=== PATIENT | female | born 1935 | race Caucasian/White ===

== ENCOUNTER 2019-05-07 12:35 | Inpatient (IN) | payer MEDICARE, BC, MEDICAID ==
--- NOTE | 2019-05-07 12:47 | EDM.PDOC ---
ED HPI GENERAL MEDICAL PROBLEM - General Chief Complaint: Head Injury Stated Complaint: Fall, Laceration, on Coumadin Time Seen by Provider: 05/07/19 12:35 Source of Information: Reports: Patient, Usp Records History Limitations: Reports: No Limitations - History of Present Illness INITIAL COMMENTS - FREE TEXT/NARRATIVE: Patient to the emergency department from the [place] [facility] where she fell. The patient has a laceration to the left parietal head area. The patient also complains of left ankle pain. The patient is unsure exactly what happened. The [facility] staff advised that they found her on the floor. The patient is on Coumadin for her atrial fibrillation and blood clots. The patient is awake alert she is oriented to person, not place/time. The patient denies any chest pain denies any abdominal pain the patient denies any upper extremity pain she denies any hip or pelvis pain and she denies any right lower extremity pain. The patient's GCS is 4-4-6 a trauma code was activated secondary to the mechanism of fall and bleeding on blood thinners Onset: Today, Sudden Duration: Hour(s): Location: Reports: Head, Lower Extremity, Left Quality: Reports: Ache Severity: Moderate Improves with: Reports: None Worsens with: Reports: Movement (Of the left ankle) Context: Reports: Trauma Associated Symptoms: Reports: Confusion (Chronic), Headaches. Denies: Nausea/ Vomiting Treatments FORMULATION TECHNICIAN: Reports: Other (see below) (none) - Related Data Allergies Allergy/AdvReac Type Severity Reaction Status Date / Time carisoprodol [From Soma] Allergy Cannot Verified 05/07/19 13:38 Remember cefaclor [From Ceclor] Allergy Cannot Verified 05/07/19 13:38 Remember cefuroxime [From Ceftin] Allergy Cannot Verified 05/07/19 13:38 Remember clarithromycin [From Biaxin] Allergy Cannot Verified 05/07/19 13:38 Remember naproxen [From Naprosyn] Allergy Cannot Verified 05/07/19 13:37 Remember Penicillins Allergy Cannot Verified 05/07/19 13:37 Remember quinidine Allergy Cannot Verified 05/07/19 13:38 [From Quinidex Extentabs] Remember Home Meds: Home Meds Albuterol/Ipratropium [DuoNeb 3.0-0.5 MG/3 ML] 1 ampule INH QID 05/07/19 [ History] Budesonide/Formoterol [Symbicort 160-4.5 MCG] 2 puff INH BID 05/07/19 [History] Diltiazem HCl [Cardizem] 30 mg PO BID 05/07/19 [History] Furosemide 80 mg PO BID 05/07/19 [History] Insulin Detemir [Levemir Flextouch] 28 unit SQ BID 05/07/19 [History] Spironolactone [Aldactone] 12.5 mg PO DAILY 05/07/19 [History] Warfarin [Coumadin] 2.5 mg PO DAILY 05/07/19 [History] ED ROS GENERAL - Review of Systems Review Of Systems: See Below Constitutional: Reports: No Symptoms HEENT: Reports: No Symptoms Respiratory: Reports: No Symptoms Cardiovascular: Reports: No Symptoms Endocrine: Reports: No Symptoms GI/Abdominal: Reports: No Symptoms. Denies: Abdominal Pain, Nausea, Vomiting : Reports: No Symptoms Musculoskeletal: Reports: Joint Pain (Left ankle) Skin: Reports: Wound (Left parietal head) Neurological: Reports: No Symptoms (No new symptoms) Psychiatric: Reports: No Symptoms ED EXAM, HEAD INJURY - Physical Exam Exam: See Below Exam Limited By: No Limitations General Appearance: Alert, WD/WN, No Apparent Distress Head: Normocephalic Nexus Criteria: Posterior, Midline Cervical Tenderness ED LACERATION/WOUND & RALF PROC - Laceration/Wound Repair Left Lateral Head Lac/wound length in cm: 2 Appearance: Linear Distal NVT: Neuro & Vascular Intact Skin Prep: Other (wound ceiling cleaner) Exploration/Debridement/Repair: Wound Explored, In a Bloodless Field Closed with: [place] # of Sutures: 5 - Splinting Left Lower Extremity Splint Site: left ankle Pre-procedure NV status: Normal Post-procedure NV status: Normal Splint Material: Other (ortho glass) Splint Design: Volar Applied & Form Fitted By: Provider Provider Post-Splint Application NV Check: NV Status Normal, Good Position Complications: No Progress/Comments: Postreduction film shows good alignment, distal pulse motor sensory is intact capillary refills less than 2 seconds to the extremity Course - Vital Signs Text/Narrative:: 1330 The patient has been evaluated in the emergency department CT of the head and neck is been obtained and is pending radiology reading. X-ray of the lumbar and thoracic spine show some degenerative changes no obvious acute fracture noted at this point. The patient does have a left ankle fracture. The patient's INR is greater than 6. The patient's left ankle was placed in a posterior splint, a soft sock padding was placed followed by cotton padding followed by the Ortho-Glass posterior splint secured with Joaquin wrap. Postreduction film shows good alignment of the fracture. This is a very complicated patient as she does have a head injury with an elevated INR and a distal tib-fib fracture of the left ankle. The patient has a 2 cm linear laceration to the left parietal area, bleeding is controlled. Wound was cleaned and then 5 alexa were placed. In normal circumstances this patient will be transferred to a tertiary care center for further evaluation and treatment. However this patient is a DNR and will be a poor candidate for any type of surgery. Currently I am trying to get a hold of the family (Evan Zambrano who I spoke with and will be calling me back) to help determine a disposition for this patient. The patient has been given vitamin K 10 mg subcutaneously. 1419 the radiologist was called back and advised that the CT of the brain does not show any acute intracranial pathology. CT of the cervical spine as well as x-rays of the lumbar and dorsal spine show some degenerative changes however it does not show any acute obvious fractures. She does advise that at L2 and L3 there does appear to be some endplate irregularities. Currently, I am still waiting on the patient's nephew the patient's uncle power of assistant professor of philosophy to call me back to determine a disposition for this patient 1447 I spoke back to the patient's nephew and medical power of assistant professor of philosophy and he advised that at this point they do not want to transfer the patient as they do not feel her being a DO NOT RESUSCITATE and her chronic medical conditions that they would want to have any surgeries at this point. I did advise him of the CT and the lab work. I have further advised him that we would probably monitor her here overnight and make a disposition with possible discharge tomorrow and he agrees to that. The patient's urine does show urinary tract infection she is allergic to multiple antibiotics, the patient will be given nitrofurantoin 100 mg p.o. twice daily. The patient will be admitted to the hospital, repeat labs will be obtained in the morning and a disposition and changes to her treatment plan will will be made at that point. - Orders/Labs/Meds Orders: Active Orders 24 hr Category Date Time Status Insert Urinary Catheter [OM.PC] Q24H Care 05/07/19 13:00 Ordered Urinary Catheter Assessment [RC] ASDIRECTED Care 05/07/19 12:58 Active Ankle Min 3V Lt [CR] Stat Exams 05/07/19 12:42 Taken Cervical Spine wo Cont [CT] Stat Exams 05/07/19 12:39 Taken Head wo Cont [CT] Routine Exams 05/07/19 Ordered Lumbar Spine 2 or 3V [CR] Stat Exams 05/07/19 12:55 Taken Thoracic Spine 2V [CR] Stat Exams 05/07/19 12:55 Taken CULTURE URINE [RM] Stat Lab 05/07/19 14:00 Received Labs: Laboratory Tests 05/07/19 05/07/19 05/07/19 Range/Units 12:55 12:55 12:55 WBC 12.4 H (5.0-10.0) 10^3/uL RBC 4.43 (4.00-5.50) 10^6/uL Hgb 12.7 (12.0-16.0) g/dL Hct 42.7 (37.0-47.0) % MCV 96.4 H (82.0-94.0) fL MCH 28.7 (27.0-32.0) pg MCHC 29.7 L (33.0-38.0) g/dL RDW Coeff of Fady 14.2 (11.0-15.0) % Plt Count 368 (150-400) 10^3/uL Neut % (Auto) 79.9 (35-85) % Lymph % (Auto) 6.0 L (10-55) % [place] % (Auto) 12.8 (0-16) % Eos % (Auto) 1.0 (0-5) % Baso % (Auto) 0.3 (0-3) % Neut # (Auto) 9.91 H (1.80-7.00) 10^3/uL Lymph # (Auto) 0.74 L (1.00-4.80) 10^3/uL [place] # (Auto) 1.59 H (0.00-0.80) 10^3/uL Eos # (Auto) 0.12 (0.00-0.45) 10^3/uL Baso # (Auto) 0.04 10^3/uL PT 61.5 H (9.7-12.3) SEC INR 6.65 H* (0.92-1.18) Sodium 137 (136-145) mEq/L Potassium 5.3 H D (3.5-5.0) mEq/L Chloride 100 (98-106) mEq/L Carbon Dioxide 35 H (21-32) mmol/L BUN 42 H (7-18) mg/dL Creatinine 1.9 H (0.6-1.0) mg/dL Est Cr Clr Drug Dosing TNP Estimated GFR (MDRD) 25 L (>=60) mL/min Glucose 324 H* D (75-99) mg/dL Calcium 9.0 (8.4-10.1) mg/dL Urine Color (YELLOW) Urine Appearance (CLEAR) Urine pH (4.5-8.0) Ur Specific [place] (1.003-1.020) Urine Protein (NEGATIVE) mg/dL Urine Glucose (UA) (NEGATIVE) mg/dL Urine Ketones (NEGATIVE) mg/dL Urine Occult Blood (NEGATIVE) Urine Nitrite (NEGATIVE) Urine Bilirubin (NEGATIVE) Urine Urobilinogen (0.2-1.0) EU/dL Ur Leukocyte Esterase (NEGATIVE) Urine RBC (0-5) /HPF Urine WBC (0-5) /HPF Urine WBC Clumps (NOT SEEN) /HPF Ur Epithelial Cells (NOT SEEN) /HPF Urine Bacteria (NOT SEEN) /HPF 05/07/19 Range/Units 14:00 WBC (5.0-10.0) 10^3/uL RBC (4.00-5.50) 10^6/uL Hgb (12.0-16.0) g/dL Hct (37.0-47.0) % MCV (82.0-94.0) fL MCH (27.0-32.0) pg MCHC (33.0-38.0) g/dL RDW Coeff of Fady (11.0-15.0) % Plt Count (150-400) 10^3/uL Neut % (Auto) (35-85) % Lymph % (Auto) (10-55) % [place] % (Auto) (0-16) % Eos % (Auto) (0-5) % Baso % (Auto) (0-3) % Neut # (Auto) (1.80-7.00) 10^3/uL Lymph # (Auto) (1.00-4.80) 10^3/uL [place] # (Auto) (0.00-0.80) 10^3/uL Eos # (Auto) (0.00-0.45) 10^3/uL Baso # (Auto) 10^3/uL PT (9.7-12.3) SEC INR (0.92-1.18) Sodium (136-145) mEq/L Potassium (3.5-5.0) mEq/L Chloride (98-106) mEq/L Carbon Dioxide (21-32) mmol/L BUN (7-18) mg/dL Creatinine (0.6-1.0) mg/dL Est Cr Clr Drug Dosing Estimated GFR (MDRD) (>=60) mL/min Glucose (75-99) mg/dL Calcium (8.4-10.1) mg/dL Urine Color Yellow (YELLOW) Urine Appearance Slightly cloudy (CLEAR) Urine pH 7.0 (4.5-8.0) Ur Specific [place] 1.020 (1.003-1.020) Urine Protein 100 H (NEGATIVE) mg/dL Urine Glucose (UA) Negative (NEGATIVE) mg/dL Urine Ketones Negative (NEGATIVE) mg/dL Urine Occult Blood Large H (NEGATIVE) Urine Nitrite Positive H (NEGATIVE) Urine Bilirubin Negative (NEGATIVE) Urine Urobilinogen 0.2 (0.2-1.0) EU/dL Ur Leukocyte Esterase Moderate H (NEGATIVE) Urine RBC 20-30 H (0-5) /HPF Urine WBC 30-40 H (0-5) /HPF Urine WBC Clumps Few H (NOT SEEN) /HPF Ur Epithelial Cells Few H (NOT SEEN) /HPF Urine Bacteria Many H (NOT SEEN) /HPF Meds: Medications Discontinued Medications Generic Name Dose Route Start Last Admin Trade Name Freq PRN Reason Stop Dose Admin Nitrofurantoin Macrocrystals 100 mg 05/07/19 14:20 Macrobid PO 05/07/19 14:21 ONETIME ONE Phytonadione 10 mg 05/07/19 13:29 05/07/19 13:38 Aquamephyton SUBCUT 05/07/19 13:30 10 mg ONETIME ONE Administration Departure - Departure Time of Disposition: 14:49 Disposition: Admitted As Inpatient 64 Condition: Good Clinical Impression: Fall, Closed left ankle fracture, Over-anticoagulated, Closed head injury, Laceration of skin of scalp, Chronic renal insufficiency, Urinary tract infection - Discharge Information *PRESCRIPTION DRUG MONITORING PROGRAM REVIEWED*: Not Applicable *COPY OF PRESCRIPTION DRUG MONITORING REPORT IN PATIENT MADINA: Not Applicable Forms: ED Department Discharge Sepsis Event Note - Focused Exam Date Exam was Performed: 05/07/19 Time Exam was Performed: 14:47 - Problem List & Annotations (1) Chronic renal insufficiency SNOMED Code(s): 750582694 Code(s): N18.9 - CHRONIC KIDNEY DISEASE, UNSPECIFIED Status: Acute Priority: Medium Qualifiers: Chronic kidney disease stage: unspecified stage Qualified Code(s): N18.9 - Chronic kidney disease, unspecified (2) Closed head injury SNOMED Code(s): 429956501856 Code(s): S09.90XA - UNSPECIFIED INJURY OF HEAD, INITIAL ENCOUNTER Status: Acute Priority: High Qualifiers: Encounter type: initial encounter Qualified Code(s): S09.90XA - Unspecified injury of head, initial encounter (3) Closed left ankle fracture SNOMED Code(s): 58488450 Code(s): S82.892A - OTH FRACTURE OF LEFT LOWER LEG, INIT FOR CLOS FX Status : Acute Priority: High Qualifiers: Encounter type: initial encounter Qualified Code(s): S82.892A - Other fracture of left lower leg, initial encounter for closed fracture (4) Fall SNOMED Code(s): 7058288, 573383633 Code(s): W19.XXXA - UNSPECIFIED FALL, INITIAL ENCOUNTER Status: Acute Priority: Medium Qualifiers: Encounter type: initial encounter Qualified Code(s): W19.XXXA - Unspecified fall, initial encounter (5) Laceration of skin of scalp SNOMED Code(s): 202524753 Code(s): S01.01XA - LACERATION WITHOUT FOREIGN BODY OF SCALP, INITIAL ENCOUNTER Status: Acute Priority: Medium Qualifiers: Encounter type: initial encounter Qualified Code(s): S01.01XA - Laceration without foreign body of scalp, initial encounter (6) Over-anticoagulated SNOMED Code(s): 25261866, 552805268 Code(s): XSD4225 - Status: Acute Priority: Medium (7) Urinary tract infection SNOMED Code(s): 80631671 Code(s): N39.0 - URINARY TRACT INFECTION, SITE NOT SPECIFIED Status: Acute Priority: Medium Qualifiers: Indwelling urinary catheter type: unspecified - Problem List Review Problem List Initiated/Reviewed/Updated: Yes - My Orders Last 24 Hours: My Active Orders 05/07/19 Head wo Cont [CT] Routine 05/07/19 12:39 Cervical Spine wo Cont [CT] Stat 05/07/19 12:42 Ankle Min 3V Lt [CR] Stat 05/07/19 12:55 Lumbar Spine 2 or 3V [CR] Stat Thoracic Spine 2V [CR] Stat 05/07/19 12:58 Urinary Catheter Assessment [RC] ASDIRECTED 05/07/19 13:00 Insert Urinary Catheter [OM.PC] Q24H 05/07/19 14:00 CULTURE URINE [RM] Stat - Assessment/Plan Admission H&P: Please use this note as an admission H&P Last 24 Hours: My Active Orders 05/07/19 Head wo Cont [CT] Routine 05/07/19 12:39 Cervical Spine wo Cont [CT] Stat 05/07/19 12:42 Ankle Min 3V Lt [CR] Stat 05/07/19 12:55 Lumbar Spine 2 or 3V [CR] Stat Thoracic Spine 2V [CR] Stat 05/07/19 12:58 Urinary Catheter Assessment [RC] ASDIRECTED 05/07/19 13:00 Insert Urinary Catheter [OM.PC] Q24H 05/07/19 14:00 CULTURE URINE [RM] Stat Plan: As above
[2019-05-07 13:12] LABS: CHLORIDE,CL 100 mEq/L (98-106); SODIUM,NA 137 mEq/L (136-145)
[2019-05-07] MEDS ORDERED: Nitrofurantoin Monohydrate/Macrocrystalline 100 MG Cap PO ONE (14:20)
[2019-05-07] MEDS ORDERED: Sodium Chloride 0.9% 10 ML Syringe FLUSH PRN (16:24)
[2019-05-07] MEDS ORDERED: Ondansetron 4 MG Tab.DIS PO PRN (16:24)
[2019-05-07] MEDS: Nitrofurantoin Monohydrate/Macrocrystalline 100 MG Cap PO SCH (18:07)
[2019-05-07] MEDS: Albuterol/Ipratropium 3.0-0.5 MG/3 ML Neb Soln INH SCH ×2 (18:07→20:26)
[2019-05-07] MEDS: Diltiazem IR 30 MG Tab PO SCH (20:26)
[2019-05-07] MEDS: Furosemide 80 MG Tab PO SCH (20:26)
[2019-05-07] MEDS: Acetaminophen/HYDROcodone 325-5 MG Tab PO PRN (20:27)
[2019-05-07] MEDS: Formoterol/Mometasone 200-5 MCG 8.8 GM Inhaler IH SCH (20:32)
[2019-05-07] MEDS: Insulin Glargine,Human Rec. Analog 100 Units/ML 3 ML Pen SUBCUT SCH (20:54)
[2019-05-08] MEDS: Acetaminophen/HYDROcodone 325-5 MG Tab PO PRN ×3 (02:19→19:53)
[2019-05-08] MEDS: Spironolactone 25 MG Tab PO SCH (08:00)
[2019-05-08] MEDS: Furosemide 80 MG Tab PO SCH ×2 (08:00→19:52)
[2019-05-08] MEDS: Nitrofurantoin Monohydrate/Macrocrystalline 100 MG Cap PO SCH ×2 (08:01→17:22)
[2019-05-08] MEDS: Diltiazem IR 30 MG Tab PO SCH ×2 (08:01→19:54)
[2019-05-08] MEDS: Albuterol/Ipratropium 3.0-0.5 MG/3 ML Neb Soln INH SCH ×4 (08:01→19:54)
[2019-05-08] MEDS: Formoterol/Mometasone 200-5 MCG 8.8 GM Inhaler IH SCH ×2 (08:04→19:51)
[2019-05-08] MEDS: Insulin Glargine,Human Rec. Analog 100 Units/ML 3 ML Pen SUBCUT SCH ×2 (08:07→20:22)
[2019-05-08] MEDS ORDERED: Albuterol/Ipratropium 3.0-0.5 MG/3 ML Neb Soln ONE (08:44)
--- NOTE | 2019-05-08 11:24 | PCM.DCSUM1 ---
Discharge Summary - Hospital Course Free Text/Narrative:: The patient's chart from yesterday for details visit, the patient presented from the retirement with a fall/closed head injury and a fracture of the left ankle. Patient also had a urinary tract infection and found to be hyper anticoagulated. Diagnosis: Stroke: No Modified Jacqueline Scale: No Symptoms at All Modified Jacqueline Scale Score: 0 - Discharge Data Discharge Date: 05/08/19 Discharge Disposition: Home, Self-Care 01 Condition: Good - Referral to Home Health Primary Care Physician: Ted Tsai MD - Discharge Diagnosis/Problem(s) (1) Chronic renal insufficiency SNOMED Code(s): 144957476 ICD Code: N18.9 - CHRONIC KIDNEY DISEASE, UNSPECIFIED Status: Acute Priority: Medium Current Visit: No Qualifiers: Chronic kidney disease stage: unspecified stage Qualified Code(s): N18.9 - Chronic kidney disease, unspecified (2) Closed head injury SNOMED Code(s): 605134543942 ICD Code: S09.90XA - UNSPECIFIED INJURY OF HEAD, INITIAL ENCOUNTER Status: Acute Priority: High Current Visit: No Qualifiers: Encounter type: initial encounter Qualified Code(s): S09.90XA - Unspecified injury of head, initial encounter (3) Closed left ankle fracture SNOMED Code(s): 97085121 ICD Code: S82.892A - OTH FRACTURE OF LEFT LOWER LEG, INIT FOR CLOS FX Status: Acute Priority: High Current Visit: No Qualifiers: Encounter type: initial encounter Qualified Code(s): S82.892A - Other fracture of left lower leg, initial encounter for closed fracture (4) Fall SNOMED Code(s): 1684027, 459141080 ICD Code: W19.XXXA - UNSPECIFIED FALL, INITIAL ENCOUNTER Status: Acute Priority: Medium Current Visit: No Qualifiers: Encounter type: initial encounter Qualified Code(s): W19.XXXA - Unspecified fall, initial encounter (5) Laceration of skin of scalp SNOMED Code(s): 978438247 ICD Code: S01.01XA - LACERATION WITHOUT FOREIGN BODY OF SCALP, INITIAL ENCOUNTER Status: Acute Priority: Medium Current Visit: No Qualifiers: Encounter type: initial encounter Qualified Code(s): S01.01XA - Laceration without foreign body of scalp, initial encounter (6) Over-anticoagulated SNOMED Code(s): 21310729, 379540189 ICD Code: [id number] - Status: Acute Priority: Medium Current Visit: No (7) Urinary tract infection SNOMED Code(s): 65502585 ICD Code: N39.0 - URINARY TRACT INFECTION, SITE NOT SPECIFIED Status: Acute Priority: Medium Current Visit: No Qualifiers: Indwelling urinary catheter type: unspecified - Discharge Plan *PRESCRIPTION DRUG MONITORING PROGRAM REVIEWED*: Not Applicable *COPY OF PRESCRIPTION DRUG MONITORING REPORT IN PATIENT MADINA: Not Applicable Home Medications: Home Meds Albuterol/Ipratropium [DuoNeb 3.0-0.5 MG/3 ML] 1 ampule INH QID 05/07/19 [ History] Budesonide/Formoterol [Symbicort 160-4.5 MCG] 2 puff INH BID 05/07/19 [History] Diltiazem HCl [Cardizem] 30 mg PO BID 05/07/19 [History] Furosemide 80 mg PO BID 05/07/19 [History] Insulin Detemir [Levemir Flextouch] 28 unit SQ BID 05/07/19 [History] Spironolactone [Aldactone] 12.5 mg PO DAILY 05/07/19 [History] Warfarin [Coumadin] 2.5 mg PO DAILY 05/07/19 [History] Forms: ED Department Discharge - Discharge Summary/Plan Comment DC Time >30 min.: No Discharge Summary/Plan Comment: The patient was admitted to observation yesterday, patient has had a overall good night, she was medicated for pain a couple of times. I did try to talk to the orthopedic doctor at [place] however they advised that the physicians senior assistant manager that is covering for the orthopedic doctor was not taking any calls. Patient stable at this point safely. The patient will have to have her INR repeated tomorrow we will continue to hold her Coumadin today. The patient will have to have an outpatient appointment scheduled with an orthopedic physician for further evaluation and treatment of her fractured ankle. See notes from yesterday for discussions with the family. The patient's left lower extremity has no obvious swelling, capillary refills less than 2 seconds and the foot is nice and warm and pink. The laceration to the left side of the head intact with alexa and there is no bleeding from the wound. There is no redness around the wound. The patient will be discharged to continue treatment for urinary tract infection. The patient is to be evaluated by family doctor this week the retirement is also advised to return the patient to the emergency department sooner if worsening problems. - General Info Date of Service: 05/08/19 Admission Dx/Problem (Free Text: Fall, closed head injury, laceration to the scalp, hyperanticoagulated, urinary tract infection, fracture left ankle Functional Status: Reports: Pain Controlled, Tolerating Diet - Review of Systems General: Denies: Fever HEENT: Reports: No Symptoms Pulmonary: Reports: No Symptoms. Denies: Shortness of Breath Cardiovascular: Reports: No Symptoms. Denies: Chest Pain Gastrointestinal: Reports: No Symptoms. Denies: Abdominal Pain, Diarrhea, Nausea, Vomiting Genitourinary: Reports: No Symptoms Musculoskeletal: Reports: Joint Pain (Left ankle pain) Skin: Reports: No Symptoms. Denies: Bruising, Rash Neurological: Reports: No Symptoms. Denies: Headache Psychiatric: Reports: No Symptoms - Patient Data Vitals - Most Recent: Last Vital Signs Temp 36.8 C 05/08/19 06:54 Pulse 107 H 05/08/19 06:54 Resp 20 05/08/19 06:54 BP 115/47 L 05/08/19 06:54 Pulse Ox 93 L 05/08/19 08:00 Weight - Most Recent: 100.924 kg I&O - Last 24 hours: Intake & Output 05/07/19 05/08/19 05/08/19 22:59 06:59 14:59 Intake Total 300 500 Balance 300 500 Lab Results - Last 24 hrs: Laboratory Results - last 24 hr 05/07/19 05/07/19 05/07/19 Range/Units 12:55 12:55 12:55 WBC 12.4 H (5.0-10.0) 10^3/uL RBC 4.43 (4.00-5.50) 10^6/uL Hgb 12.7 (12.0-16.0) g/dL Hct 42.7 (37.0-47.0) % MCV 96.4 H (82.0-94.0) fL MCH 28.7 (27.0-32.0) pg MCHC 29.7 L (33.0-38.0) g/dL RDW Coeff of Fady 14.2 (11.0-15.0) % Plt Count 368 (150-400) 10^3/uL Neut % (Auto) 79.9 (35-85) % Lymph % (Auto) 6.0 L (10-55) % Nolan % (Auto) 12.8 (0-16) % Eos % (Auto) 1.0 (0-5) % Baso % (Auto) 0.3 (0-3) % Neut # (Auto) 9.91 H (1.80-7.00) 10^3/uL Lymph # (Auto) 0.74 L (1.00-4.80) 10^3/uL Nolan # (Auto) 1.59 H (0.00-0.80) 10^3/uL Eos # (Auto) 0.12 (0.00-0.45) 10^3/uL Baso # (Auto) 0.04 10^3/uL PT 61.5 H (9.7-12.3) SEC INR 6.65 H* (0.92-1.18) Sodium 137 (136-145) mEq/L Potassium 5.3 H D (3.5-5.0) mEq/L Chloride 100 (98-106) mEq/L Carbon Dioxide 35 H (21-32) mmol/L BUN 42 H (7-18) mg/dL Creatinine 1.9 H (0.6-1.0) mg/dL Est Cr Clr Drug Dosing TNP Estimated GFR (MDRD) 25 L (>=60) mL/min Glucose 324 H* D (75-99) mg/dL POC Glucose (75-105) mg/dl Calcium 9.0 (8.4-10.1) mg/dL Magnesium (1.8-2.4) mg/dL Urine Color (YELLOW) Urine Appearance (CLEAR) Urine pH (4.5-8.0) Ur Specific Treece (1.003-1.020) Urine Protein (NEGATIVE) mg/dL Urine Glucose (UA) (NEGATIVE) mg/dL Urine Ketones (NEGATIVE) mg/dL Urine Occult Blood (NEGATIVE) Urine Nitrite (NEGATIVE) Urine Bilirubin (NEGATIVE) Urine Urobilinogen (0.2-1.0) EU/dL Ur Leukocyte Esterase (NEGATIVE) Urine RBC (0-5) /HPF Urine WBC (0-5) /HPF Urine WBC Clumps (NOT SEEN) /HPF Ur Epithelial Cells (NOT SEEN) /HPF Urine Bacteria (NOT SEEN) /HPF 05/07/19 05/07/19 05/08/19 Range/Units 14:00 20:52 06:50 WBC 13.3 H (5.0-10.0) 10^3/uL RBC 4.07 (4.00-5.50) 10^6/uL Hgb 11.5 L (12.0-16.0) g/dL Hct 39.1 (37.0-47.0) % MCV 96.1 H (82.0-94.0) fL MCH 28.3 (27.0-32.0) pg MCHC 29.4 L (33.0-38.0) g/dL RDW Coeff of Fady 13.8 (11.0-15.0) % Plt Count 335 (150-400) 10^3/uL Neut % (Auto) 78.8 (35-85) % Lymph % (Auto) 5.2 L (10-55) % Nolan % (Auto) 14.7 (0-16) % Eos % (Auto) 0.9 (0-5) % Baso % (Auto) 0.4 (0-3) % Neut # (Auto) 10.50 H (1.80-7.00) 10^3/uL Lymph # (Auto) 0.69 L (1.00-4.80) 10^3/uL Nolan # (Auto) 1.96 H (0.00-0.80) 10^3/uL Eos # (Auto) 0.12 (0.00-0.45) 10^3/uL Baso # (Auto) 0.05 10^3/uL PT (9.7-12.3) SEC INR (0.92-1.18) Sodium (136-145) mEq/L Potassium (3.5-5.0) mEq/L Chloride (98-106) mEq/L Carbon Dioxide (21-32) mmol/L BUN (7-18) mg/dL Creatinine (0.6-1.0) mg/dL Est Cr Clr Drug Dosing Estimated GFR (MDRD) (>=60) mL/min Glucose (75-99) mg/dL POC Glucose 199 H (75-105) mg/dl Calcium (8.4-10.1) mg/dL Magnesium (1.8-2.4) mg/dL Urine Color Yellow (YELLOW) Urine Appearance Slightly cloudy (CLEAR) Urine pH 7.0 (4.5-8.0) Ur Specific Treece 1.020 (1.003-1.020) Urine Protein 100 H (NEGATIVE) mg/dL Urine Glucose (UA) Negative (NEGATIVE) mg/dL Urine Ketones Negative (NEGATIVE) mg/dL Urine Occult Blood Large H (NEGATIVE) Urine Nitrite Positive H (NEGATIVE) Urine Bilirubin Negative (NEGATIVE) Urine Urobilinogen 0.2 (0.2-1.0) EU/dL Ur Leukocyte Esterase Moderate H (NEGATIVE) Urine RBC 20-30 H (0-5) /HPF Urine WBC 30-40 H (0-5) /HPF Urine WBC Clumps Few H (NOT SEEN) /HPF Ur Epithelial Cells Few H (NOT SEEN) /HPF Urine Bacteria Many H (NOT SEEN) /HPF 05/08/19 05/08/19 05/08/19 Range/Units 06:50 06:50 07:34 WBC (5.0-10.0) 10^3/uL RBC (4.00-5.50) 10^6/uL Hgb (12.0-16.0) g/dL Hct (37.0-47.0) % MCV (82.0-94.0) fL MCH (27.0-32.0) pg MCHC (33.0-38.0) g/dL RDW Coeff of Fady (11.0-15.0) % Plt Count (150-400) 10^3/uL Neut % (Auto) (35-85) % Lymph % (Auto) (10-55) % Nolan % (Auto) (0-16) % Eos % (Auto) (0-5) % Baso % (Auto) (0-3) % Neut # (Auto) (1.80-7.00) 10^3/uL Lymph # (Auto) (1.00-4.80) 10^3/uL Nolan # (Auto) (0.00-0.80) 10^3/uL Eos # (Auto) (0.00-0.45) 10^3/uL Baso # (Auto) 10^3/uL PT 43.0 H (9.7-12.3) SEC INR 4.55 H* (0.92-1.18) Sodium 138 (136-145) mEq/L Potassium 4.9 (3.5-5.0) mEq/L Chloride 100 (98-106) mEq/L Carbon Dioxide 38 H (21-32) mmol/L BUN 39 H (7-18) mg/dL Creatinine 1.7 H (0.6-1.0) mg/dL Est Cr Clr Drug Dosing 17.38 Estimated GFR (MDRD) 29 L (>=60) mL/min Glucose 181 H D (75-99) mg/dL POC Glucose 170 H (75-105) mg/dl Calcium 8.9 (8.4-10.1) mg/dL Magnesium 2.3 (1.8-2.4) mg/dL Urine Color (YELLOW) Urine Appearance (CLEAR) Urine pH (4.5-8.0) Ur Specific Treece (1.003-1.020) Urine Protein (NEGATIVE) mg/dL Urine Glucose (UA) (NEGATIVE) mg/dL Urine Ketones (NEGATIVE) mg/dL Urine Occult Blood (NEGATIVE) Urine Nitrite (NEGATIVE) Urine Bilirubin (NEGATIVE) Urine Urobilinogen (0.2-1.0) EU/dL Ur Leukocyte Esterase (NEGATIVE) Urine RBC (0-5) /HPF Urine WBC (0-5) /HPF Urine WBC Clumps (NOT SEEN) /HPF Ur Epithelial Cells (NOT SEEN) /HPF Urine Bacteria (NOT SEEN) /HPF NAYANA Results - Last 24 hrs: Microbiology 05/07/19 14:00 Urine Culture - Preliminary Urine, Catheterized Gram Negative Rods Med Orders - Current: Current Medications Hydrocodone Bitart/Acetaminophen (Belden 325-5 Mg) 1 tab PO Q4H PRN PRN Reason: Pain (moderate 4-6) Last Admin: 05/08/19 09:34 Dose: 1 tab Albuterol/Ipratropium (Duoneb 3.0-0.5 Mg/3 Ml) 3 ml INH QIDRT [facility] Last Admin: 05/08/19 08:01 Dose: 3 ml Diltiazem HCl (Cardizem) 30 mg PO BID [facility] Last Admin: 05/08/19 08:01 Dose: 30 mg Furosemide (Lasix) 80 mg PO BID [facility] Last Admin: 05/08/19 08:00 Dose: 80 mg Insulin Glargine (Lantus Solostar) 28 units SUBCUT BID [facility] Last Admin: 05/08/19 08:07 Dose: Not Given Mometasone Furoate/Formoterol Fumar (Dulera 200-5 Mcg) 2 puff IH BID [facility] Last Admin: 05/08/19 08:04 Dose: 2 puff Nitrofurantoin Macrocrystals (Macrobid) 100 mg PO BIDMEALS [facility] Last Admin: 05/08/19 08:01 Dose: 100 mg Ondansetron HCl (Zofran Odt) 4 mg PO Q6H PRN PRN Reason: nausea, able to take PO Sodium Chloride (Saline Flush) 10 ml FLUSH ASDIRECTED PRN PRN Reason: Keep Vein Open Spironolactone (Aldactone) 12.5 mg PO DAILY [facility] Last Admin: 05/08/19 08:00 Dose: 12.5 mg Discontinued Medications Albuterol/Ipratropium (Duoneb 3.0-0.5 Mg/3 Ml) Confirm Administered Dose 3 ml .ROUTE .STK-MED ONE Stop: 05/08/19 08:45 Last Admin: 05/08/19 08:36 Dose: Not Given Nitrofurantoin Macrocrystals (Macrobid) 100 mg PO ONETIME ONE Stop: 05/07/19 14:21 Last Admin: 05/07/19 14:53 Dose: 100 mg Phytonadione (Aquamephyton) 10 mg SUBCUT ONETIME ONE Stop: 05/07/19 13:30 Last Admin: 05/07/19 13:38 Dose: 10 mg - Exam General: Reports: Alert, Oriented (for persons normal is very hard of hearing) HEENT: Reports: Pupils Equal Neck: Reports: Supple, Trachea Midline Lungs: Reports: Clear to Auscultation, Wheezing (scattered exp wheezing, isonO2 at 2L\NC around the clock) Cardiovascular: Reports: Regular Rhythm, Murmurs GI/Abdominal Exam: Soft, Non-Tender Back Exam: Reports: Normal Inspection, Full Range of Motion Extremities: Normal Inspection (except splint to the left foot, cap refillis < 2sec, good senstaion), Normal Capillary Refill. No: Slow Capillary Refill, Increased Warmth Skin: Reports: Warm, Dry, Intact Neurological: Reports: No New Focal Deficit Psy/Mental Status: Reports: Alert, Normal Affect, Normal Mood
--- NOTE | 2019-05-08 11:46 | PCM.PN ---
- General Info Date of Service: 05/08/19 Admission Dx/Problem (Free Text): Fall, closed head injury, laceration to the scalp, hyperanticoagulated, urinary tract infection, fracture left ankle Functional Status: Reports: Tolerating Diet - Review of Systems General: Denies: Fever HEENT: Denies: Sinus Congestion, Rhinitis Pulmonary: Reports: Cough, Wheezing Cardiovascular: Reports: No Symptoms Gastrointestinal: Reports: No Symptoms. Denies: Diarrhea, Nausea, Vomiting Genitourinary: Reports: Other (Foul odor) Musculoskeletal: Reports: Joint Pain (Left ankle pain) Skin: Reports: No Symptoms. Denies: Rash Neurological: Reports: No Symptoms. Denies: Confusion (No change from normal) Psychiatric: Reports: No Symptoms - Patient Data Vitals - Most Recent: Last Vital Signs Temp 36.8 C 05/08/19 06:54 Pulse 107 H 05/08/19 06:54 Resp 20 05/08/19 06:54 BP 115/47 L 05/08/19 06:54 Pulse Ox 93 L 05/08/19 08:00 Weight - Most Recent: 100.924 kg I&O - Last 24 Hours: Intake & Output 05/07/19 05/08/19 05/08/19 22:59 06:59 14:59 Intake Total 300 500 Balance 300 500 Lab Results Last 24 Hours: Laboratory Results - last 24 hr 05/07/19 05/07/19 05/07/19 Range/Units 12:55 12:55 12:55 WBC 12.4 H (5.0-10.0) 10^3/uL RBC 4.43 (4.00-5.50) 10^6/uL Hgb 12.7 (12.0-16.0) g/dL Hct 42.7 (37.0-47.0) % MCV 96.4 H (82.0-94.0) fL MCH 28.7 (27.0-32.0) pg MCHC 29.7 L (33.0-38.0) g/dL RDW Coeff of Fady 14.2 (11.0-15.0) % Plt Count 368 (150-400) 10^3/uL Neut % (Auto) 79.9 (35-85) % Lymph % (Auto) 6.0 L (10-55) % [place] % (Auto) 12.8 (0-16) % Eos % (Auto) 1.0 (0-5) % Baso % (Auto) 0.3 (0-3) % Neut # (Auto) 9.91 H (1.80-7.00) 10^3/uL Lymph # (Auto) 0.74 L (1.00-4.80) 10^3/uL [place] # (Auto) 1.59 H (0.00-0.80) 10^3/uL Eos # (Auto) 0.12 (0.00-0.45) 10^3/uL Baso # (Auto) 0.04 10^3/uL PT 61.5 H (9.7-12.3) SEC INR 6.65 H* (0.92-1.18) Sodium 137 (136-145) mEq/L Potassium 5.3 H D (3.5-5.0) mEq/L Chloride 100 (98-106) mEq/L Carbon Dioxide 35 H (21-32) mmol/L BUN 42 H (7-18) mg/dL Creatinine 1.9 H (0.6-1.0) mg/dL Est Cr Clr Drug Dosing TNP Estimated GFR (MDRD) 25 L (>=60) mL/min Glucose 324 H* D (75-99) mg/dL POC Glucose (75-105) mg/dl Calcium 9.0 (8.4-10.1) mg/dL Magnesium (1.8-2.4) mg/dL Urine Color (YELLOW) Urine Appearance (CLEAR) Urine pH (4.5-8.0) Ur Specific [place] (1.003-1.020) Urine Protein (NEGATIVE) mg/dL Urine Glucose (UA) (NEGATIVE) mg/dL Urine Ketones (NEGATIVE) mg/dL Urine Occult Blood (NEGATIVE) Urine Nitrite (NEGATIVE) Urine Bilirubin (NEGATIVE) Urine Urobilinogen (0.2-1.0) EU/dL Ur Leukocyte Esterase (NEGATIVE) Urine RBC (0-5) /HPF Urine WBC (0-5) /HPF Urine WBC Clumps (NOT SEEN) /HPF Ur Epithelial Cells (NOT SEEN) /HPF Urine Bacteria (NOT SEEN) /HPF 05/07/19 05/07/19 05/08/19 Range/Units 14:00 20:52 06:50 WBC 13.3 H (5.0-10.0) 10^3/uL RBC 4.07 (4.00-5.50) 10^6/uL Hgb 11.5 L (12.0-16.0) g/dL Hct 39.1 (37.0-47.0) % MCV 96.1 H (82.0-94.0) fL MCH 28.3 (27.0-32.0) pg MCHC 29.4 L (33.0-38.0) g/dL RDW Coeff of Fady 13.8 (11.0-15.0) % Plt Count 335 (150-400) 10^3/uL Neut % (Auto) 78.8 (35-85) % Lymph % (Auto) 5.2 L (10-55) % [place] % (Auto) 14.7 (0-16) % Eos % (Auto) 0.9 (0-5) % Baso % (Auto) 0.4 (0-3) % Neut # (Auto) 10.50 H (1.80-7.00) 10^3/uL Lymph # (Auto) 0.69 L (1.00-4.80) 10^3/uL [place] # (Auto) 1.96 H (0.00-0.80) 10^3/uL Eos # (Auto) 0.12 (0.00-0.45) 10^3/uL Baso # (Auto) 0.05 10^3/uL PT (9.7-12.3) SEC INR (0.92-1.18) Sodium (136-145) mEq/L Potassium (3.5-5.0) mEq/L Chloride (98-106) mEq/L Carbon Dioxide (21-32) mmol/L BUN (7-18) mg/dL Creatinine (0.6-1.0) mg/dL Est Cr Clr Drug Dosing Estimated GFR (MDRD) (>=60) mL/min Glucose (75-99) mg/dL POC Glucose 199 H (75-105) mg/dl Calcium (8.4-10.1) mg/dL Magnesium (1.8-2.4) mg/dL Urine Color Yellow (YELLOW) Urine Appearance Slightly cloudy (CLEAR) Urine pH 7.0 (4.5-8.0) Ur Specific [place] 1.020 (1.003-1.020) Urine Protein 100 H (NEGATIVE) mg/dL Urine Glucose (UA) Negative (NEGATIVE) mg/dL Urine Ketones Negative (NEGATIVE) mg/dL Urine Occult Blood Large H (NEGATIVE) Urine Nitrite Positive H (NEGATIVE) Urine Bilirubin Negative (NEGATIVE) Urine Urobilinogen 0.2 (0.2-1.0) EU/dL Ur Leukocyte Esterase Moderate H (NEGATIVE) Urine RBC 20-30 H (0-5) /HPF Urine WBC 30-40 H (0-5) /HPF Urine WBC Clumps Few H (NOT SEEN) /HPF Ur Epithelial Cells Few H (NOT SEEN) /HPF Urine Bacteria Many H (NOT SEEN) /HPF 05/08/19 05/08/19 05/08/19 Range/Units 06:50 06:50 07:34 WBC (5.0-10.0) 10^3/uL RBC (4.00-5.50) 10^6/uL Hgb (12.0-16.0) g/dL Hct (37.0-47.0) % MCV (82.0-94.0) fL MCH (27.0-32.0) pg MCHC (33.0-38.0) g/dL RDW Coeff of Fady (11.0-15.0) % Plt Count (150-400) 10^3/uL Neut % (Auto) (35-85) % Lymph % (Auto) (10-55) % [place] % (Auto) (0-16) % Eos % (Auto) (0-5) % Baso % (Auto) (0-3) % Neut # (Auto) (1.80-7.00) 10^3/uL Lymph # (Auto) (1.00-4.80) 10^3/uL [place] # (Auto) (0.00-0.80) 10^3/uL Eos # (Auto) (0.00-0.45) 10^3/uL Baso # (Auto) 10^3/uL PT 43.0 H (9.7-12.3) SEC INR 4.55 H* (0.92-1.18) Sodium 138 (136-145) mEq/L Potassium 4.9 (3.5-5.0) mEq/L Chloride 100 (98-106) mEq/L Carbon Dioxide 38 H (21-32) mmol/L BUN 39 H (7-18) mg/dL Creatinine 1.7 H (0.6-1.0) mg/dL Est Cr Clr Drug Dosing 17.38 Estimated GFR (MDRD) 29 L (>=60) mL/min Glucose 181 H D (75-99) mg/dL POC Glucose 170 H (75-105) mg/dl Calcium 8.9 (8.4-10.1) mg/dL Magnesium 2.3 (1.8-2.4) mg/dL Urine Color (YELLOW) Urine Appearance (CLEAR) Urine pH (4.5-8.0) Ur Specific [place] (1.003-1.020) Urine Protein (NEGATIVE) mg/dL Urine Glucose (UA) (NEGATIVE) mg/dL Urine Ketones (NEGATIVE) mg/dL Urine Occult Blood (NEGATIVE) Urine Nitrite (NEGATIVE) Urine Bilirubin (NEGATIVE) Urine Urobilinogen (0.2-1.0) EU/dL Ur Leukocyte Esterase (NEGATIVE) Urine RBC (0-5) /HPF Urine WBC (0-5) /HPF Urine WBC Clumps (NOT SEEN) /HPF Ur Epithelial Cells (NOT SEEN) /HPF Urine Bacteria (NOT SEEN) /HPF Ted Results Last 24 Hours: Microbiology 05/07/19 14:00 Urine Culture - Preliminary Urine, Catheterized Gram Negative Rods Med Orders - Current: Current Medications Hydrocodone Bitart/Acetaminophen (Gillespie 325-5 Mg) 1 tab PO Q4H PRN PRN Reason: Pain (moderate 4-6) Last Admin: 05/08/19 09:34 Dose: 1 tab Albuterol/Ipratropium (Duoneb 3.0-0.5 Mg/3 Ml) 3 ml INH QIDRT [facility] Last Admin: 05/08/19 11:34 Dose: 3 ml Diltiazem HCl (Cardizem) 30 mg PO BID [facility] Last Admin: 05/08/19 08:01 Dose: 30 mg Furosemide (Lasix) 80 mg PO BID [facility] Last Admin: 05/08/19 08:00 Dose: 80 mg Insulin Glargine (Lantus Solostar) 28 units SUBCUT BID [facility] Last Admin: 05/08/19 08:07 Dose: Not Given Mometasone Furoate/Formoterol Fumar (Dulera 200-5 Mcg) 2 puff IH BID [facility] Last Admin: 05/08/19 08:04 Dose: 2 puff Nitrofurantoin Macrocrystals (Macrobid) 100 mg PO BIDMEALS [facility] Last Admin: 05/08/19 08:01 Dose: 100 mg Ondansetron HCl (Zofran Odt) 4 mg PO Q6H PRN PRN Reason: nausea, able to take PO Sodium Chloride (Saline Flush) 10 ml FLUSH ASDIRECTED PRN PRN Reason: Keep Vein Open Spironolactone (Aldactone) 12.5 mg PO DAILY [facility] Last Admin: 05/08/19 08:00 Dose: 12.5 mg Discontinued Medications Albuterol/Ipratropium (Duoneb 3.0-0.5 Mg/3 Ml) Confirm Administered Dose 3 ml .ROUTE .STK-MED ONE Stop: 05/08/19 08:45 Last Admin: 05/08/19 08:36 Dose: Not Given Nitrofurantoin Macrocrystals (Macrobid) 100 mg PO ONETIME ONE Stop: 05/07/19 14:21 Last Admin: 05/07/19 14:53 Dose: 100 mg Phytonadione (Aquamephyton) 10 mg SUBCUT ONETIME ONE Stop: 05/07/19 13:30 Last Admin: 05/07/19 13:38 Dose: 10 mg - Exam Quality Assessment: Supplemental Oxygen (2L NC) General: Alert, Oriented (For patient normal), Cooperative Neck: Supple, Trachea Midline Lungs: Normal Respiratory Effort, Wheezing (Scattered expiratory). No: Clear to Auscultation GI/Abdominal Exam: Normal Bowel Sounds, Soft, Non-Tender Back Exam: Normal Inspection, Full Range of Motion Extremities: Normal Inspection, Normal Range of Motion, No Pedal Edema, Normal Capillary Refill. No: Non-Tender (Pain left ankle, splint in place) Peripheral Pulses: 2+: Radial (L), Radial (R), Posterior Tibial (R), Dorsalis Pedis (L) Skin: Warm, Dry, Intact Wound/Incisions: Healing Well (Laceration left parietal scalp without signs of infection or bleeding) Neurological: No New Focal Deficit Psy/Mental Status: Alert, Normal Affect, Normal Mood, Other (Extremely hard of hearing) Sepsis Event Note - Evaluation Sepsis Screening Result: Severe Sepsis Risk - Focused Exam Vital Signs: Vital Signs Temp Pulse Resp BP Pulse Ox 05/08/19 08:00 93 L 05/08/19 07:59 85 L 05/08/19 06:54 36.8 C 107 H 20 115/47 L 91 L 05/08/19 03:55 36.9 C 111 H 20 118/53 L 94 L 05/08/19 00:00 36.9 C 102 H 20 121/49 L 93 L Date Exam was Performed: 05/08/19 Time Exam was Performed: 11:41 - Problem List & Annotations (1) Chronic renal insufficiency SNOMED Code(s): 950609286 Code(s): N18.9 - CHRONIC KIDNEY DISEASE, UNSPECIFIED Status: Acute Priority: Medium Current Visit: No Qualifiers: Chronic kidney disease stage: unspecified stage Qualified Code(s): N18.9 - Chronic kidney disease, unspecified (2) Closed head injury SNOMED Code(s): 284298762238 Code(s): S09.90XA - UNSPECIFIED INJURY OF HEAD, INITIAL ENCOUNTER Status: Acute Priority: High Current Visit: No Qualifiers: Encounter type: initial encounter Qualified Code(s): S09.90XA - Unspecified injury of head, initial encounter (3) Closed left ankle fracture SNOMED Code(s): 78812851 Code(s): S82.892A - OTH FRACTURE OF LEFT LOWER LEG, INIT FOR CLOS FX Status : Acute Priority: High Current Visit: No Qualifiers: Encounter type: initial encounter Qualified Code(s): S82.892A - Other fracture of left lower leg, initial encounter for closed fracture (4) Fall SNOMED Code(s): 2717833, 370022789 Code(s): W19.XXXA - UNSPECIFIED FALL, INITIAL ENCOUNTER Status: Acute Priority: Medium Current Visit: No Qualifiers: Encounter type: initial encounter Qualified Code(s): W19.XXXA - Unspecified fall, initial encounter (5) Laceration of skin of scalp SNOMED Code(s): 258629664 Code(s): S01.01XA - LACERATION WITHOUT FOREIGN BODY OF SCALP, INITIAL ENCOUNTER Status: Acute Priority: Medium Current Visit: No Qualifiers: Encounter type: initial encounter Qualified Code(s): S01.01XA - Laceration without foreign body of scalp, initial encounter (6) Over-anticoagulated SNOMED Code(s): 55497664, 234920906 Code(s): EWP9300 - Status: Acute Priority: Medium Current Visit: No (7) Urinary tract infection SNOMED Code(s): 17027596 Code(s): N39.0 - URINARY TRACT INFECTION, SITE NOT SPECIFIED Status: Acute Priority: Medium Current Visit: No Qualifiers: Indwelling urinary catheter type: unspecified - Problem List Review Problem List Initiated/Reviewed/Updated: Yes - My Orders Last 24 Hours: My Active Orders 05/07/19 12:39 Cervical Spine wo Cont [CT] Stat 05/07/19 12:42 Ankle Min 3V Lt [CR] Stat 05/07/19 12:55 Lumbar Spine 2 or 3V [CR] Stat Thoracic Spine 2V [CR] Stat 05/07/19 14:00 CULTURE URINE [RM] Stat 05/07/19 14:43 Head wo Cont [CT] Routine 05/07/19 15:04 Resuscitation Status Routine 05/07/19 16:24 Patient Status [ADT] Routine Blood Glucose Check, Bedside [RC] QIDACANDBED Cardiac Monitoring [RC] 0800,2000 Intake and Output [RC] 0600,1800 Neurovascular Check [RC] 0800,1600,0000 Oxygen Therapy [RC] 2355 Up to Chair [RC] .PRN Vital Signs [RC] 0800,1200,1600,2000,0000,0400 Acetaminophen/HYDROcodone [Gillespie 325-5 MG] 1 tab PO Q4H PRN Albuterol/Ipratropium [DuoNeb 3.0-0.5 MG/3 ML] 3 ml INH QIDRT Ondansetron [Zofran ODT] 4 mg PO Q6H PRN Sodium Chloride 0.9% [Saline Flush] 10 ml FLUSH ASDIRECTED PRN Saline Lock Insert [OM.PC] Routine 05/07/19 17:30 Nitrofurantoin [place]/Macrocryst [Macrobid] 100 mg PO BIDMEALS 05/07/19 20:00 Diltiazem IR [Cardizem] 30 mg PO BID Furosemide [Lasix] 80 mg PO BID Insulin Glarg,Human.Rec.Analog [LantUS Solostar] 28 units SUBCUT BID Mometasone/Formoterol [Dulera 200-5 MCG] 2 puff IH BID 05/07/19 Dinner 2 Gram Sodium Diet [DIET] 05/08/19 08:00 Spironolactone [Aldactone] 12.5 mg PO DAILY - Plan Plan:: The patient's INR is 4.5 today, the patient was not complaining of any shortness of breath however her oxygen saturation on her O2 at 2 L nasal cannula was in the upper 80s, I will do a chest x-ray today to rule out any pneumonias. The patient will continue her nitrofurantoin for her urinary tract infection, I did attempt to speak to the orthopedic doctor in [place] however the physician's commercial assistant was covering and he was refusing any phone calls. The attempt was to obtain further outpatient treatment for the patient's broken ankle. Again as stated yesterday the patient is a poor candidate for surgery due to her chronic medical conditions and the family's hesitancy to allow surgery is been evaluated. I suspect that the patient will need to be evaluated by an orthopedic doctor and have a appropriate cast applied.
[2019-05-08] MEDS ORDERED: Acetaminophen 500 MG Tab PO PRN (12:04)
[2019-05-08] MEDS ORDERED: Levofloxacin/Dextrose 5%-Water 500 MG in Premix Bag 1 BAG IV ONE ×2 (16:33→20:00)
[2019-05-08] MEDS ORDERED: Azithromycin 500 MG in Sodium Chloride 0.9% 250 ML IV SCH (16:45)
[2019-05-09] MEDS: Nitrofurantoin Monohydrate/Macrocrystalline 100 MG Cap PO SCH ×2 (07:37→16:55)
[2019-05-09] MEDS: Spironolactone 25 MG Tab PO SCH (07:37)
[2019-05-09] MEDS: Albuterol/Ipratropium 3.0-0.5 MG/3 ML Neb Soln INH SCH ×4 (07:37→20:04)
[2019-05-09] MEDS: Furosemide 80 MG Tab PO SCH ×2 (07:37→20:02)
[2019-05-09] MEDS: Diltiazem IR 30 MG Tab PO SCH ×2 (07:37→20:02)
[2019-05-09] MEDS: Formoterol/Mometasone 200-5 MCG 8.8 GM Inhaler IH SCH ×2 (07:38→20:02)
[2019-05-09] MEDS: Insulin Glargine,Human Rec. Analog 100 Units/ML 3 ML Pen SUBCUT SCH ×2 (07:41→20:19)
[2019-05-09] MEDS ORDERED: Levofloxacin/Dextrose 5%-Water 500 MG in Premix Bag 1 BAG IV SCH (09:15)
[2019-05-09] MEDS ORDERED: methylPREDNISolone Sodium Succinate 125 MG/2 ML SDV IVPUSH SCH (10:00)
--- NOTE | 2019-05-09 13:32 | PCM.PN ---
- General Info Date of Service: 05/09/19 Admission Dx/Problem (Free Text): Fall, closed head injury, laceration to the scalp, hyperanticoagulated, urinary tract infection, fracture left ankle Functional Status: Reports: Tolerating Diet. Denies: Pain Controlled, Ambulating - Review of Systems General: Reports: Weakness, Fatigue, Malaise HEENT: Reports: Other (patient states "okay" when asked how is feeling this am. She does admit yet to shortness of breath. Complains of pain in legs to staff with repositioning. Not eating this am. ) Pulmonary: Reports: Shortness of Breath, Cough Cardiovascular: Reports: Edema. Denies: Chest Pain, Lightheadedness Gastrointestinal: Denies: Abdominal Pain, Nausea, Vomiting Genitourinary: Reports: Incontinence Neurological: Reports: Weakness - Patient Data Vitals - Most Recent: Last Vital Signs Temp 99.5 F 05/09/19 12:00 Pulse 108 H 05/09/19 12:00 Resp 20 05/09/19 12:00 BP 122/42 L 05/09/19 12:00 Pulse Ox 94 L 05/09/19 12:00 Weight - Most Recent: 222 lb 8 oz I&O - Last 24 Hours: Intake & Output 05/08/19 05/09/19 05/09/19 22:59 06:59 14:59 Intake Total 360 600 Balance 360 600 Lab Results Last 24 Hours: Laboratory Results - last 24 hr 05/08/19 05/08/19 05/08/19 Range/Units 17:20 18:55 20:21 WBC (5.0-10.0) 10^3/uL RBC (4.00-5.50) 10^6/uL Hgb (12.0-16.0) g/dL Hct (37.0-47.0) % MCV (82.0-94.0) fL MCH (27.0-32.0) pg MCHC (33.0-38.0) g/dL RDW Coeff of Fady (11.0-15.0) % Plt Count (150-400) 10^3/uL Add Manual Diff Neutrophils % (Manual) (35-85) % Lymphocytes % (Manual) (21-55) % Monocytes % (Manual) (2-12) % PT (9.7-12.3) SEC INR (0.92-1.18) Sodium (136-145) mEq/L Potassium (3.5-5.0) mEq/L Chloride (98-106) mEq/L Carbon Dioxide (21-32) mmol/L BUN (7-18) mg/dL Creatinine (0.6-1.0) mg/dL Est Cr Clr Drug Dosing mL/min Estimated GFR (MDRD) (>=60) mL/min Glucose (75-99) mg/dL POC Glucose 227 H 314 H 321 H (75-105) mg/dl Calcium (8.4-10.1) mg/dL Total Bilirubin (0.0-1.0) mg/dL AST (15-37) U/L ALT (12-78) U/L Alkaline Phosphatase (46-116) U/L C-Reactive Protein (0.2-0.8) mg/dL Total Protein (6.4-8.2) g/dL Albumin (3.4-5.0) g/dL 05/09/19 05/09/19 05/09/19 Range/Units 06:43 07:10 07:10 WBC 12.7 H (5.0-10.0) 10^3/uL RBC 3.77 L (4.00-5.50) 10^6/uL Hgb 10.8 L (12.0-16.0) g/dL Hct 36.1 L (37.0-47.0) % MCV 95.8 H (82.0-94.0) fL MCH 28.6 (27.0-32.0) pg MCHC 29.9 L (33.0-38.0) g/dL RDW Coeff of Fady 13.9 (11.0-15.0) % Plt Count 310 (150-400) 10^3/uL Add Manual Diff Yes Neutrophils % (Manual) 75 (35-85) % Lymphocytes % (Manual) 5 L (21-55) % Monocytes % (Manual) 16 H (2-12) % PT 19.4 H (9.7-12.3) SEC INR 1.96 H (0.92-1.18) Sodium (136-145) mEq/L Potassium (3.5-5.0) mEq/L Chloride (98-106) mEq/L Carbon Dioxide (21-32) mmol/L BUN (7-18) mg/dL Creatinine (0.6-1.0) mg/dL Est Cr Clr Drug Dosing mL/min Estimated GFR (MDRD) (>=60) mL/min Glucose (75-99) mg/dL POC Glucose 246 H (75-105) mg/dl Calcium (8.4-10.1) mg/dL Total Bilirubin (0.0-1.0) mg/dL AST (15-37) U/L ALT (12-78) U/L Alkaline Phosphatase (46-116) U/L C-Reactive Protein (0.2-0.8) mg/dL Total Protein (6.4-8.2) g/dL Albumin (3.4-5.0) g/dL 05/09/19 Range/Units 07:10 WBC (5.0-10.0) 10^3/uL RBC (4.00-5.50) 10^6/uL Hgb (12.0-16.0) g/dL Hct (37.0-47.0) % MCV (82.0-94.0) fL MCH (27.0-32.0) pg MCHC (33.0-38.0) g/dL RDW Coeff of Fady (11.0-15.0) % Plt Count (150-400) 10^3/uL Add Manual Diff Neutrophils % (Manual) (35-85) % Lymphocytes % (Manual) (21-55) % Monocytes % (Manual) (2-12) % PT (9.7-12.3) SEC INR (0.92-1.18) Sodium 137 (136-145) mEq/L Potassium 4.3 (3.5-5.0) mEq/L Chloride 98 (98-106) mEq/L Carbon Dioxide 37 H (21-32) mmol/L BUN 37 H (7-18) mg/dL Creatinine 1.8 H (0.6-1.0) mg/dL Est Cr Clr Drug Dosing 16.41 mL/min Estimated GFR (MDRD) 27 L (>=60) mL/min Glucose 222 H (75-99) mg/dL POC Glucose (75-105) mg/dl Calcium 9.0 (8.4-10.1) mg/dL Total Bilirubin 0.9 (0.0-1.0) mg/dL AST 23 (15-37) U/L ALT 60 (12-78) U/L Alkaline Phosphatase 109 (46-116) U/L C-Reactive Protein 35.7 H (0.2-0.8) mg/dL Total Protein 7.0 (6.4-8.2) g/dL Albumin 2.3 L (3.4-5.0) g/dL Ted Results Last 24 Hours: Microbiology 05/07/19 14:00 Urine Culture - Final Urine, Catheterized Escherichia Coli Med Orders - Current: Current Medications Acetaminophen (Tylenol Extra Strength) 1,000 mg PO Q6H PRN PRN Reason: Pain/Fever Last Admin: 05/08/19 12:10 Dose: 1,000 mg Hydrocodone Bitart/Acetaminophen ([place] 325-5 Mg) 1 tab PO Q4H PRN PRN Reason: Pain (moderate 4-6) Last Admin: 05/08/19 19:53 Dose: 1 tab Albuterol/Ipratropium (Duoneb 3.0-0.5 Mg/3 Ml) 3 ml INH QIDRT [facility] Last Admin: 05/09/19 11:38 Dose: 3 ml Diltiazem HCl (Cardizem) 30 mg PO BID [facility] Last Admin: 05/09/19 07:37 Dose: 30 mg Furosemide (Lasix) 80 mg PO BID [facility] Last Admin: 05/09/19 07:37 Dose: 80 mg Levofloxacin/Dextrose (Levaquin In D5w 250 Mg/50 Ml) 50 mls @ 100 mls/hr IV BEDTIME [facility] Insulin Glargine (Lantus Solostar) 28 units SUBCUT BID [facility] Last Admin: 05/09/19 07:41 Dose: 28 unit Methylprednisolone Sodium Succinate (Solu-Medrol) 62.5 mg IVPUSH Q12H [facility] Last Admin: 05/09/19 10:26 Dose: 62.5 mg Mometasone Furoate/Formoterol Fumar (Dulera 200-5 Mcg) 2 puff IH BID [facility] Last Admin: 05/09/19 07:38 Dose: 2 puff Nitrofurantoin Macrocrystals (Macrobid) 100 mg PO BIDMEALS [facility] Ondansetron HCl (Zofran Odt) 4 mg PO Q6H PRN PRN Reason: nausea, able to take PO Sodium Chloride (Saline Flush) 10 ml FLUSH ASDIRECTED PRN PRN Reason: Keep Vein Open Spironolactone (Aldactone) 12.5 mg PO DAILY [facility] Last Admin: 05/09/19 07:37 Dose: 12.5 mg Discontinued Medications Albuterol/Ipratropium (Duoneb 3.0-0.5 Mg/3 Ml) Confirm Administered Dose 3 ml .ROUTE .STK-MED ONE Stop: 05/08/19 08:45 Last Admin: 05/08/19 08:36 Dose: Not Given Azithromycin 500 mg/ Sodium (Chloride) 250 mls @ 250 mls/hr IV Q24H [facility] Last Admin: 05/08/19 17:49 Dose: 250 mls/hr Levofloxacin/Dextrose 500 mg/ (Premix) 100 mls @ 100 mls/hr IV ONETIME ONE Stop: 05/08/19 17:32 Last Admin: 05/08/19 17:55 Dose: Not Given Levofloxacin/Dextrose 500 mg/ (Premix) 100 mls @ 100 mls/hr IV ONETIME ONE Stop: 05/08/19 20:59 Last Admin: 05/08/19 19:54 Dose: 100 mls/hr Levofloxacin/Dextrose 500 mg/ (Premix) 100 mls @ 100 mls/hr IV Q24H [facility] Last Admin: 05/09/19 10:13 Dose: Not Given Nitrofurantoin Macrocrystals (Macrobid) 100 mg PO ONETIME ONE Stop: 05/07/19 14:21 Last Admin: 05/07/19 14:53 Dose: 100 mg Nitrofurantoin Macrocrystals (Macrobid) 100 mg PO BIDMEALS [facility] Last Admin: 05/09/19 07:37 Dose: 100 mg Phytonadione (Aquamephyton) 10 mg SUBCUT ONETIME ONE Stop: 05/07/19 13:30 Last Admin: 05/07/19 13:38 Dose: 10 mg - Exam Quality Assessment: Supplemental Oxygen General: Alert, Oriented (person), Cooperative HEENT: Mucous Membr. Moist/[place] Neck: Supple Lungs: Decreased Breath Sounds, Rhonchi, Wheezing Cardiovascular: Regular Rate, Regular Rhythm GI/Abdominal Exam: Normal Bowel Sounds, Soft, Non-Tender Skin: Warm, Dry Neurological: No New Focal Deficit Sepsis Event Note - Evaluation Sepsis Screening Result: No Definite Risk - Focused Exam Vital Signs: Vital Signs Temp Pulse Pulse Resp BP Pulse Ox 05/09/19 12:00 99.5 F 108 H 20 122/42 L 94 L 05/09/19 07:43 99.6 F 20 116/44 L 94 L 05/09/19 04:08 93 L 05/09/19 04:00 99.8 F 103 H 20 126/52 L 97 Date Exam was Performed: 05/09/19 Time Exam was Performed: 15:32 - Problem List & Annotations (1) Chronic renal insufficiency SNOMED Code(s): 515182172 Code(s): N18.9 - CHRONIC KIDNEY DISEASE, UNSPECIFIED Status: Acute Priority: High Current Visit: Yes Qualifiers: Chronic kidney disease stage: stage 4 (severe) Qualified Code(s): N18.4 - Chronic kidney disease, stage 4 (severe) (2) Closed head injury SNOMED Code(s): 164246529247 Code(s): S09.90XA - UNSPECIFIED INJURY OF HEAD, INITIAL ENCOUNTER Status: Acute Priority: High Current Visit: Yes Qualifiers: Encounter type: initial encounter Qualified Code(s): S09.90XA - Unspecified injury of head, initial encounter (3) Closed left ankle fracture SNOMED Code(s): 24988614 Code(s): S82.892A - OTH FRACTURE OF LEFT LOWER LEG, INIT FOR CLOS FX Status : Acute Priority: High Current Visit: Yes Qualifiers: Encounter type: initial encounter Qualified Code(s): S82.892A - Other fracture of left lower leg, initial encounter for closed fracture (4) Laceration of skin of scalp SNOMED Code(s): 746455104 Code(s): S01.01XA - LACERATION WITHOUT FOREIGN BODY OF SCALP, INITIAL ENCOUNTER Status: Acute Priority: Medium Current Visit: Yes Qualifiers: Encounter type: initial encounter Qualified Code(s): S01.01XA - Laceration without foreign body of scalp, initial encounter (5) Urinary tract infection SNOMED Code(s): 94911452 Code(s): N39.0 - URINARY TRACT INFECTION, SITE NOT SPECIFIED Status: Acute Priority: High Current Visit: Yes Qualifiers: Indwelling urinary catheter type: unspecified (6) Pneumonia SNOMED Code(s): 956142936 Code(s): J18.9 - PNEUMONIA, UNSPECIFIED ORGANISM Status: Acute Current Visit: Yes Qualifiers: Pneumonia type: due to other aerobic Gram-negative bacteria Laterality: bilateral Lung location: lower lobe of lung Qualified Code(s): J15.6 - Pneumonia due to other Gram-negative bacteria - Problem List Review Problem List Initiated/Reviewed/Updated: Yes - My Orders Last 24 Hours: My Active Orders 05/09/19 10:00 methylPREDNISolone Sod Succ [Solu-MEDROL] 62.5 mg IVPUSH Q12H 05/09/19 17:30 Nitrofurantoin [place]/Macrocryst [Macrobid] 100 mg PO BIDMEALS 05/09/19 20:00 Levofloxacin/Dextrose 5%-Water [Levaquin in D5W 250 MG/50 ML] 50 ml IV BEDTIME 05/10/19 05:11 Chest 2V [CR] AM - Assessment Assessment:: Closed head injury Tib/fib fracture of left leg Scalp Laceration Bilateral lower lobe pneumonia CKD, stage 4 UTI - Plan Plan:: The patient's INR is 4.5 today, the patient was not complaining of any shortness of breath however her oxygen saturation on her O2 at 2 L nasal cannula was in the upper 80s, I will do a chest x-ray today to rule out any pneumonias. The patient will continue her nitrofurantoin for her urinary tract infection, I did attempt to speak to the orthopedic doctor in [place] however the physician's cafe assistant was covering and he was refusing any phone calls. The attempt was to obtain further outpatient treatment for the patient's broken ankle. Again as stated yesterday the patient is a poor candidate for surgery due to her chronic medical conditions and the family's hesitancy to allow surgery is been evaluated. I suspect that the patient will need to be evaluated by an orthopedic doctor and have a appropriate cast applied. 05-09-2019 Patient alert this am. Admits to feeling short of breath. Is on oxygen at 5 liters, sats 94%. Blood pressure stable. Low grade temps, 99.6 to 99.9. Does still complain of pain with any movement/changing positions. Splint intact to his leg. INR is down to 1.96 now, Coumadin is on hold. WBC 12.7 today, CRP high at 35.7. Urine did grow out e coli, resistant to Levaquin. Had negative CT of head. Lung sounds note rhonchi and wheezing throughout. Will obtain repeat chest xray in am. Start steroids. continue nebs. Will stop the IV Zithromax. Continue Levaquin, Macrobid to cover for both pneumonia and UTI. Repeat labs in am.
[2019-05-09] MEDS: Insulin Lispro 100 Units/ML 3 ML Vial SUBCUT SCH ×2 (17:04→20:32)
[2019-05-09] MEDS ORDERED: Levofloxacin/Dextrose 5%-Water 50 ML IV SCH (20:00)
[2019-05-09] MEDS: methylPREDNISolone Sodium Succinate 125 MG/2 ML SDV IVPUSH SCH (20:04)
[2019-05-09] MEDS: Acetaminophen/HYDROcodone 325-5 MG Tab PO PRN (20:15)
[2019-05-10] MEDS: Spironolactone 25 MG Tab PO SCH (07:38)
[2019-05-10] MEDS: Furosemide 80 MG Tab PO SCH (07:40)
[2019-05-10] MEDS: Diltiazem IR 30 MG Tab PO SCH (07:40)
[2019-05-10] MEDS: Nitrofurantoin Monohydrate/Macrocrystalline 100 MG Cap PO SCH (07:41)
[2019-05-10] MEDS: methylPREDNISolone Sodium Succinate 125 MG/2 ML SDV IVPUSH SCH (07:44)
[2019-05-10] MEDS: Formoterol/Mometasone 200-5 MCG 8.8 GM Inhaler IH SCH (07:46)
[2019-05-10] MEDS: Albuterol/Ipratropium 3.0-0.5 MG/3 ML Neb Soln INH SCH (07:47)
[2019-05-10] MEDS: Insulin Lispro 100 Units/ML 3 ML Vial SUBCUT SCH (07:49)
[2019-05-10] MEDS: Insulin Glargine,Human Rec. Analog 100 Units/ML 3 ML Pen SUBCUT SCH (07:52)
--- NOTE | 2019-05-10 20:51 | PCM.DCSUM1 ---
Discharge Summary - Hospital Course Free Text/Narrative:: Patient presented to the ER from [facility] after a fall. Patient sustained a closed head injury with laceration to the left scalp/parietal area. Also complained of left ankle pain. Patient on coumadin so trauma code done. Oriented to person per her norm. No chest pain, abdominal pain or pelvic. pain. CT scan of head was done which was negative for acute concerns. GCS 14 on arrival. Xrays of ankle done that were positive for tib/fib fracture. Posterior splint was placed. Vitamin K was given. UA done and positive. WBC 12.4. IV Levaquin started, Macrobid started. Diagnosis: Stroke: No Modified Lenoir Scale: No Symptoms at All Modified Lenoir Scale Score: 0 - Discharge Data Discharge Date: 05/10/19 Discharge Disposition: Home, Self-Care 01 Condition: Fair - Referral to Home Health Primary Care Physician: Ted Tsai MD - Discharge Diagnosis/Problem(s) (1) Chronic renal insufficiency SNOMED Code(s): 021796608 ICD Code: N18.9 - CHRONIC KIDNEY DISEASE, UNSPECIFIED Status: Acute Priority: High Qualifiers: Chronic kidney disease stage: stage 4 (severe) Qualified Code(s): N18.4 - Chronic kidney disease, stage 4 (severe) (2) Closed head injury SNOMED Code(s): 822992600451 ICD Code: S09.90XA - UNSPECIFIED INJURY OF HEAD, INITIAL ENCOUNTER Status: Acute Priority: High Qualifiers: Encounter type: initial encounter Qualified Code(s): S09.90XA - Unspecified injury of head, initial encounter (3) Closed left ankle fracture SNOMED Code(s): 77733447 ICD Code: S82.892A - OTH FRACTURE OF LEFT LOWER LEG, INIT FOR CLOS FX Status: Acute Priority: High Qualifiers: Encounter type: initial encounter Qualified Code(s): S82.892A - Other fracture of left lower leg, initial encounter for closed fracture (4) Laceration of skin of scalp SNOMED Code(s): 987153418 ICD Code: S01.01XA - LACERATION WITHOUT FOREIGN BODY OF SCALP, INITIAL ENCOUNTER Status: Acute Priority: Medium Qualifiers: Encounter type: initial encounter Qualified Code(s): S01.01XA - Laceration without foreign body of scalp, initial encounter (5) Urinary tract infection SNOMED Code(s): 00122810 ICD Code: N39.0 - URINARY TRACT INFECTION, SITE NOT SPECIFIED Status: Acute Priority: High Qualifiers: Indwelling urinary catheter type: unspecified (6) Pneumonia SNOMED Code(s): 108623498 ICD Code: J18.9 - PNEUMONIA, UNSPECIFIED ORGANISM Status: Acute Qualifiers: Pneumonia type: due to other aerobic Gram-negative bacteria Laterality: bilateral Lung location: lower lobe of lung Qualified Code(s): J15.6 - Pneumonia due to other Gram-negative bacteria - Patient Summary/Data Complications: none Hospital Course: Patient stable this am. Lung sounds improved. Less wheezing and rhonchi noted. Afebrile. Oxygen sats 92-93% on 5 liters. INR was high at 6.65 initially, was given Vitamin K, INR now down to 1.23. CRP did peak at 28.7. Urine culture did grow e coli that was resistant to Levaquin so Macrobid given for UTI. Chest xray was concerning for bilateral lower lobe pneumonia. Given steroids. Neb treatments. WBC down to 10.2. Creatinine stable at 1.9. Blood cultures are negative. Will return to [facility]. Continue Levaquin and Macrobid. [place] as needed for pain. Will have them arrange for follow up visit with Dr. Newell for fracture. - Patient Instructions Diet: Usual Diet as Tolerated Activity: As Tolerated - Discharge Plan *PRESCRIPTION DRUG MONITORING PROGRAM REVIEWED*: Not Applicable *COPY OF PRESCRIPTION DRUG MONITORING REPORT IN PATIENT [place]: Not Applicable Prescriptions/Med Rec: Acetaminophen/HYDROcodone [[place] 325-5 MG] 1 tab PO Q4H PRN #30 tablet PRN Reason: Pain (Moderate 4-6) Levofloxacin [Levaquin] 500 mg PO DAILY #7 tablet Nitrofurantoin [place]/Macrocryst [Nitrofurantoin [place]-MCR] 100 mg PO BIDMEALS #20 cap Home Medications: Home Meds Albuterol/Ipratropium [DuoNeb 3.0-0.5 MG/3 ML] 1 ampule INH QID 05/07/19 [ History] Budesonide/Formoterol [Symbicort 160-4.5 MCG] 2 puff INH BID 05/07/19 [History] Diltiazem HCl [Cardizem] 30 mg PO BID 05/07/19 [History] Furosemide 80 mg PO BID 05/07/19 [History] Insulin Detemir [Levemir Flextouch] 28 unit SQ BID 05/07/19 [History] Spironolactone [Aldactone] 12.5 mg PO DAILY 05/07/19 [History] Warfarin [Coumadin] 2.5 mg PO DAILY 05/07/19 [History] Acetaminophen/HYDROcodone [[place] 325-5 MG] 1 tab PO Q4H PRN #30 tablet 05/10/19 [Rx] Levofloxacin [Levaquin] 500 mg PO DAILY #7 tablet 05/10/19 [Rx] Nitrofurantoin [place]/Macrocryst [Nitrofurantoin [place]-MCR] 100 mg PO BIDMEALS #20 cap 05/10/19 [Rx] Forms: ED Department Discharge Referrals: Ted Tsai MD [Primary Care Provider] - - Discharge Summary/Plan Comment DC Time >30 min.: No - General Info Date of Service: 05/10/19 Admission Dx/Problem (Free Text: Fall, closed head injury, laceration to the scalp, hyperanticoagulated, urinary tract infection, fracture left ankle Functional Status: Reports: Pain Controlled, Tolerating Diet. Denies: Ambulating - Review of Systems General: Reports: Weakness, Fatigue, Malaise HEENT: Reports: No Symptoms Pulmonary: Reports: Shortness of Breath, Cough Cardiovascular: Denies: Chest Pain Gastrointestinal: Denies: Abdominal Pain, Nausea, Vomiting Musculoskeletal: Reports: Leg Pain - Patient Data Vitals - Most Recent: Last Vital Signs Temp 97.9 F 05/10/19 07:37 Pulse 93 05/10/19 07:37 Resp 20 05/10/19 07:37 BP 111/43 L 05/10/19 07:37 Pulse Ox 91 L 05/10/19 03:59 Weight - Most Recent: 222 lb 8 oz Lab Results - Last 24 hrs: Laboratory Results - last 24 hr 05/10/19 05/10/19 05/10/19 Range/Units 06:19 08:10 08:12 WBC 10.2 H (5.0-10.0) 10^3/uL RBC 3.74 L (4.00-5.50) 10^6/uL Hgb 10.8 L (12.0-16.0) g/dL Hct 34.9 L (37.0-47.0) % MCV 93.3 (82.0-94.0) fL MCH 28.9 (27.0-32.0) pg MCHC 30.9 L (33.0-38.0) g/dL RDW Coeff of Fady 13.5 (11.0-15.0) % Plt Count 309 (150-400) 10^3/uL Add Manual Diff Yes Neutrophils % (Manual) 93 H (35-85) % Band Neutrophils % 2 (0-5) % Monocytes % (Manual) 2 (2-12) % PT 12.5 H (9.7-12.3) SEC INR 1.23 H (0.92-1.18) Sodium (136-145) mEq/L Potassium (3.5-5.0) mEq/L Chloride (98-106) mEq/L Carbon Dioxide (21-32) mmol/L BUN (7-18) mg/dL Creatinine (0.6-1.0) mg/dL Est Cr Clr Drug Dosing mL/min Estimated GFR (MDRD) (>=60) mL/min Glucose (75-99) mg/dL POC Glucose 402 H* (75-105) mg/dl Calcium (8.4-10.1) mg/dL C-Reactive Protein (0.2-0.8) mg/dL 05/10/19 Range/Units 08:55 WBC (5.0-10.0) 10^3/uL RBC (4.00-5.50) 10^6/uL Hgb (12.0-16.0) g/dL Hct (37.0-47.0) % MCV (82.0-94.0) fL MCH (27.0-32.0) pg MCHC (33.0-38.0) g/dL RDW Coeff of Fday (11.0-15.0) % Plt Count (150-400) 10^3/uL Add Manual Diff Neutrophils % (Manual) (35-85) % Band Neutrophils % (0-5) % Monocytes % (Manual) (2-12) % PT (9.7-12.3) SEC INR (0.92-1.18) Sodium 134 L (136-145) mEq/L Potassium 4.0 (3.5-5.0) mEq/L Chloride 95 L (98-106) mEq/L Carbon Dioxide 34 H (21-32) mmol/L BUN 47 H (7-18) mg/dL Creatinine 1.9 H (0.6-1.0) mg/dL Est Cr Clr Drug Dosing 15.55 mL/min Estimated GFR (MDRD) 25 L (>=60) mL/min Glucose 314 H* D (75-99) mg/dL POC Glucose (75-105) mg/dl Calcium 9.0 (8.4-10.1) mg/dL C-Reactive Protein 28.7 H (0.2-0.8) mg/dL NAYANA Results - Last 24 hrs: Microbiology 05/08/19 16:50 Aerobic Blood Culture - Preliminary Blood - Venous - Lab Draw NO GROWTH AFTER 2 DAYS Anaerobic Blood Culture - Preliminary NO GROWTH AFTER 2 DAYS 05/08/19 16:45 Aerobic Blood Culture - Preliminary Blood - Venous NO GROWTH AFTER 2 DAYS Anaerobic Blood Culture - Preliminary NO GROWTH AFTER 2 DAYS Med Orders - Current: Current Medications Discontinued Medications Acetaminophen (Tylenol Extra Strength) 1,000 mg PO Q6H PRN PRN Reason: Pain/Fever Last Admin: 05/08/19 12:10 Dose: 1,000 mg Hydrocodone Bitart/Acetaminophen ([place] 325-5 Mg) 1 tab PO Q4H PRN PRN Reason: Pain (moderate 4-6) Last Admin: 05/09/19 20:15 Dose: 1 tab Albuterol/Ipratropium (Duoneb 3.0-0.5 Mg/3 Ml) 3 ml INH QIDRT [facility] Last Admin: 05/10/19 07:47 Dose: 3 ml Albuterol/Ipratropium (Duoneb 3.0-0.5 Mg/3 Ml) Confirm Administered Dose 3 ml .ROUTE .STK-MED ONE Stop: 05/08/19 08:45 Last Admin: 05/08/19 08:36 Dose: Not Given Diltiazem HCl (Cardizem) 30 mg PO BID [facility] Last Admin: 05/10/19 07:40 Dose: 30 mg Furosemide (Lasix) 80 mg PO BID [facility] Last Admin: 05/10/19 07:40 Dose: 80 mg Azithromycin 500 mg/ Sodium (Chloride) 250 mls @ 250 mls/hr IV Q24H [facility] Last Admin: 05/08/19 17:49 Dose: 250 mls/hr Levofloxacin/Dextrose 500 mg/ (Premix) 100 mls @ 100 mls/hr IV ONETIME ONE Stop: 05/08/19 17:32 Last Admin: 05/08/19 17:55 Dose: Not Given Levofloxacin/Dextrose 500 mg/ (Premix) 100 mls @ 100 mls/hr IV ONETIME ONE Stop: 05/08/19 20:59 Last Admin: 05/08/19 19:54 Dose: 100 mls/hr Levofloxacin/Dextrose 500 mg/ (Premix) 100 mls @ 100 mls/hr IV Q24H [facility] Last Admin: 05/09/19 10:13 Dose: Not Given Levofloxacin/Dextrose (Levaquin In D5w 250 Mg/50 Ml) 50 mls @ 100 mls/hr IV BEDTIME [facility] Last Admin: 05/09/19 20:03 Dose: 100 mls/hr Insulin Glargine (Lantus Solostar) 28 units SUBCUT BID [facility] Last Admin: 05/10/19 07:52 Dose: 28 unit Insulin Human Lispro (Humalog) 0 unit SUBCUT WITHMEALSANDBED [facility]; Protocol Last Admin: 05/10/19 07:49 Dose: 10 unit Methylprednisolone Sodium Succinate (Solu-Medrol) 62.5 mg IVPUSH Q12H [facility] Last Admin: 05/09/19 10:26 Dose: 62.5 mg Methylprednisolone Sodium Succinate (Solu-Medrol) 62.5 mg IVPUSH BID [facility] Last Admin: 05/10/19 07:44 Dose: 62.5 mg Mometasone Furoate/Formoterol Fumar (Dulera 200-5 Mcg) 2 puff IH BID [facility] Last Admin: 05/10/19 07:46 Dose: 2 puff Nitrofurantoin Macrocrystals (Macrobid) 100 mg PO ONETIME ONE Stop: 05/07/19 14:21 Last Admin: 05/07/19 14:53 Dose: 100 mg Nitrofurantoin Macrocrystals (Macrobid) 100 mg PO BIDMEALS [facility] Last Admin: 05/09/19 07:37 Dose: 100 mg Nitrofurantoin Macrocrystals (Macrobid) 100 mg PO BIDMEALS [facility] Last Admin: 05/10/19 07:41 Dose: 100 mg Ondansetron HCl (Zofran Odt) 4 mg PO Q6H PRN PRN Reason: nausea, able to take PO Phytonadione (Aquamephyton) 10 mg SUBCUT ONETIME ONE Stop: 05/07/19 13:30 Last Admin: 05/07/19 13:38 Dose: 10 mg Sodium Chloride (Saline Flush) 10 ml FLUSH ASDIRECTED PRN PRN Reason: Keep Vein Open Spironolactone (Aldactone) 12.5 mg PO DAILY [facility] Last Admin: 05/10/19 07:38 Dose: 12.5 mg - Exam General: Reports: Alert, Oriented (person only) HEENT: Reports: Mucous Membr. Moist/[place] Neck: Reports: Supple Lungs: Reports: Decreased Breath Sounds, Rhonchi, Wheezing Cardiovascular: Reports: Regular Rate, Regular Rhythm GI/Abdominal Exam: Normal Bowel Sounds, Soft, Non-Tender Extremities: Other (left leg splint intact, tender to exam) Neurological: Reports: No New Focal Deficit
== END 2019-05-10 08:45 | disposition home or self-care (01) | DRG 562 ==
LOC: CC.ED 12:35 → CC.MS 15:00
PROVIDERS: ADMIT Nurse Practitioner; ATTEND Family Medicine
DX: S82.892A Other fracture of left lower leg, initial encounter for closed fracture (principal); S82.832A Other fracture of upper and lower end of left fibula, initial encounter for closed fracture; J15.6 Pneumonia due to other Gram-negative bacteria; N39.0 Urinary tract infection, site not specified; N18.9 Chronic kidney disease, unspecified; N18.4 Chronic kidney disease, stage 4 (severe); R79.1 Abnormal coagulation profile; S09.90XA Unspecified injury of head, initial encounter; Z88.1 Allergy status to other antibiotic agents; S82.52XA Displaced fracture of medial malleolus of left tibia, initial encounter for closed fracture; I48.91 Unspecified atrial fibrillation; Z66 Do not resuscitate; S01.01XA Laceration without foreign body of scalp, initial encounter; W19.XXXA Unspecified fall, initial encounter; H91.90 Unspecified hearing loss, unspecified ear; Z79.01 Long term (current) use of anticoagulants; Z99.81 Dependence on supplemental oxygen; Z88.0 Allergy status to penicillin; Z88.8 Allergy status to other drugs, medicaments and biological substances; Z79.51 Long term (current) use of inhaled steroids; Y92.129 Unspecified place in nursing home as the place of occurrence of the external cause; Z79.4 Long term (current) use of insulin; Z79.899 Other long term (current) drug therapy; Y93.89 Activity, other specified
CPT/HCPCS: 12001; 29515; 36415; 70450; 71045; 72070; 72100; 72125; 73610-LT; 80048; 80053; 81001; 82962; 83735; 85025; 85610; 86140; 87040; 87086; 87088; 87186; 94640; 96372; 99285-25; A9270-GY; J0456; J1815; J1815-GY; J1956; J2930; J3430; J7050; J7620-GY

== ENCOUNTER 2019-05-21 15:38 | Emergency (ER) | payer MEDICARE, BC, MEDICAID ==
[2019-05-21] MEDS ORDERED: cefTRIAXone 1 GM Vial IM ONE (15:45)
[2019-05-21] MEDS ORDERED: Lidocaine 1% 20 ML MDV INJECT ONE (15:45)
--- NOTE | 2019-05-21 15:52 | EDM.PDOC ---
ED HPI GENERAL MEDICAL PROBLEM - General Chief Complaint: Lower Extremity Injury/Pain Stated Complaint: red lower legs Time Seen by Provider: 05/21/19 15:40 Source of Information: Reports: Patient, Halfway Records, RN History Limitations: Reports: No Limitations - History of Present Illness Onset: Today Onset Date: 05/21/19 Duration: Day(s): (NOTICED TODAY) Location: Reports: Lower Extremity, Left Front/Back Body Image: 1 - redness, warmth, cellulitis. 2 - redness, warmth, cellulitis. Severity: Mild Improves with: Reports: None Worsens with: Reports: None Associated Symptoms: Denies: Confusion, Chest Pain, Cough, cough w sputum, Diaphoresis, Fever/Chills, Headaches, Loss of Appetite, Malaise, Nausea/Vomiting , Rash, Seizure, Shortness of Breath, Syncope, Weakness - Related Data Allergies Allergy/AdvReac Type Severity Reaction Status Date / Time carisoprodol [From Soma] Allergy Cannot Verified 05/21/19 15:45 Remember cefaclor [From Ceclor] Allergy Cannot Verified 05/21/19 15:45 Remember cefuroxime [From Ceftin] Allergy Cannot Verified 05/21/19 15:45 Remember clarithromycin [From Biaxin] Allergy Cannot Verified 05/21/19 15:45 Remember naproxen [From Naprosyn] Allergy Cannot Verified 05/21/19 15:45 Remember Penicillins Allergy Cannot Verified 05/21/19 15:45 Remember quinidine Allergy Cannot Verified 05/21/19 15:45 [From Quinidex Extentabs] Remember Home Meds: Home Meds Albuterol/Ipratropium [DuoNeb 3.0-0.5 MG/3 ML] 1 ampule INH QID 05/07/19 [ History] Budesonide/Formoterol [Symbicort 160-4.5 MCG] 2 puff INH BID 05/07/19 [History] Diltiazem HCl [Cardizem] 30 mg PO BID 05/07/19 [History] Furosemide 80 mg PO BID 05/07/19 [History] Insulin Detemir [Levemir Flextouch] 28 unit SQ BID 05/07/19 [History] Spironolactone [Aldactone] 12.5 mg PO DAILY 05/07/19 [History] Warfarin [Coumadin] 2.5 mg PO DAILY 05/07/19 [History] Acetaminophen/HYDROcodone [[place] 325-5 MG] 1 tab PO Q4H PRN #30 tablet 05/10/19 [Rx] Insulin Aspart [NovoLOG] See Protocol SUBCUT WITHMEALSANDBED 05/21/19 [History] Potassium Chloride 10 meq PO BID 05/21/19 [History] Past Medical History HEENT History: Reports: Hard of Hearing, Impaired Vision Cardiovascular History: Reports: Heart Failure, PVD Respiratory History: Reports: Asthma Genitourinary History: Reports: Urinary Incontinence Review of Systems - Review of Systems Review Of Systems: See Below Constitutional: Reports: No Symptoms. Denies: Fever Eyes: Reports: No Symptoms Ears: Reports: No Symptoms Nose: Reports: No Symptoms Mouth/Throat: Reports: No Symptoms Respiratory: Reports: No Symptoms Cardiovascular: Reports: No Symptoms GI/Abdominal: Reports: No Symptoms Genitourinary: Reports: No Symptoms Musculoskeletal: Reports: Leg Pain (LLE since fracture per patient) Skin: Reports: Erythema (LLE) Neurological: Reports: No Symptoms Psychiatric: Reports: No Symptoms ED EXAM, GENERAL - Physical Exam Exam: See Below Exam Limited By: No Limitations General Appearance: Alert, WD/WN, No Apparent Distress, Obese, Other ( chronically ill) Eye Exam: Bilateral Eye: Normal Inspection, PERRL Ears: Normal External Exam, Normal Canal, Hearing Grossly Normal, Normal TMs Nose: Normal Inspection, Normal Mucosa, No Blood Throat/Mouth: Normal Inspection, Normal Lips, Normal Gums, Normal Oropharynx, Normal Voice, No Airway Compromise Head: Atraumatic, Normocephalic Neck: Normal Inspection, Supple, Non-Tender, Full Range of Motion Respiratory/Chest: No Respiratory Distress, Rhonchi (chonic, on oxygen) Cardiovascular: Normal Peripheral Pulses, Regular Rate, Rhythm Peripheral Pulses: 2+: Radial (L), Radial (R), Posterior Tibial (L), Posterior Tibial (R), Dorsalis Pedis (L), Dorsalis Pedis (R) Back Exam: Normal Inspection Extremities: Redness (LLE circumferntial lle. No joint involvement. ) Neurological: Alert, Oriented Psychiatric: Normal Affect, Normal Mood Skin Exam: Warm, Intact, Erythema (LLE circumferential. No joint involvement.) Course - Vital Signs Last Recorded V/S: Last Vital Signs Temp 98.4 F 05/21/19 15:40 Pulse 80 05/21/19 15:40 Resp 18 05/21/19 15:40 BP 132/40 L 05/21/19 15:40 Pulse Ox 96 05/21/19 15:40 - Orders/Labs/Meds Orders: Active Orders 24 hr Category Date Time Status CBC WITH AUTO DIFF [HEME] Stat Lab 05/21/19 15:50 Results MANUAL DIFFERENTIAL QA/NC [HEME] Stat Lab 05/21/19 15:50 Results Labs: Laboratory Tests 05/21/19 Range/Units 15:50 WBC 13.0 H (5.0-10.0) 10^3/uL RBC 3.81 L (4.00-5.50) 10^6/uL Hgb 10.9 L (12.0-16.0) g/dL Hct 35.6 L (37.0-47.0) % MCV 93.4 (82.0-94.0) fL MCH 28.6 (27.0-32.0) pg MCHC 30.6 L (33.0-38.0) g/dL RDW Coeff of Fady 15.1 H (11.0-15.0) % Plt Count 423 H (150-400) 10^3/uL Add Manual Diff Yes Meds: Medications Discontinued Medications Generic Name Dose Route Start Last Admin Trade Name Kory PRN Reason Stop Dose Admin Ceftriaxone Sodium 1 gm 05/21/19 15:45 05/21/19 16:04 Rocephin IM 05/21/19 15:46 1 gm ONETIME ONE Administration Lidocaine HCl 1 ml 05/21/19 15:45 05/21/19 16:05 Xylocaine 1% INJECT 05/21/19 15:46 2 ml ONETIME ONE Administration - Re-Assessments/Exams Free Text/Narrative Re-Assessment/Exam: 05/21/19 16:16 Cellulitis no joint involvement. No streaking, fever, vomting. wbc consistent with priors. Will discharge. Departure - Departure Time of Disposition: 16:17 Disposition: Home, Self-Care 01 Condition: Fair Clinical Impression: Cellulitis Qualifiers: Site of cellulitis: extremity Site of cellulitis of extremity: lower extremity Laterality: left Qualified Code(s): L03.116 - Cellulitis of left lower limb - Discharge Information *PRESCRIPTION DRUG MONITORING PROGRAM REVIEWED*: Not Applicable *COPY OF PRESCRIPTION DRUG MONITORING REPORT IN PATIENT MADINA: Not Applicable Instructions: Cellulitis, Adult Forms: ED Department Discharge Additional Instructions: Followup with primary care provider Return as needed Rocephin 1g IM QD x 6 days: Given one dose in ER: Total 7 days. Sepsis Event Note - Focused Exam Vital Signs: Vital Signs Temp Pulse Resp BP Pulse Ox 05/21/19 15:40 98.4 F 80 18 132/40 L 96 Date Exam was Performed: 05/21/19 Time Exam was Performed: 16:11 - My Orders Last 24 Hours: My Active Orders 05/21/19 15:50 CBC WITH AUTO DIFF [HEME] Stat MANUAL DIFFERENTIAL QA/NC [HEME] Stat - Assessment/Plan Last 24 Hours: My Active Orders 05/21/19 15:50 CBC WITH AUTO DIFF [HEME] Stat MANUAL DIFFERENTIAL QA/NC [HEME] Stat
== END 2019-05-21 16:39 | disposition home or self-care (01) ==
LOC: CC.ED 15:38
DX: L03.116 Cellulitis of left lower limb (principal); I50.9 Heart failure, unspecified; J45.909 Unspecified asthma, uncomplicated; Z88.8 Allergy status to other drugs, medicaments and biological substances; Z88.1 Allergy status to other antibiotic agents; Z88.0 Allergy status to penicillin; Z79.899 Other long term (current) drug therapy; Z79.4 Long term (current) use of insulin; Z79.01 Long term (current) use of anticoagulants
CPT/HCPCS: 36415; 85025; 96372; 99283; J0696; J2001

== ENCOUNTER 2020-01-14 10:06 | Emergency (ER) | payer MEDICARE, BC, MEDICAID ==
[2020-01-14 11:12] LABS: CHLORIDE,CL 95 mEq/L (98-106); SODIUM,NA 138 mEq/L (136-145)
--- NOTE | 2020-01-14 11:30 | EDM.PDOC ---
ED HPI GENERAL MEDICAL PROBLEM - General Chief Complaint: General Stated Complaint: SOB Time Seen by Provider: 01/14/20 10:45 Source of Information: Reports: Patient, Halfway Records History Limitations: Reports: Respiratory Distress - History of Present Illness INITIAL COMMENTS - FREE TEXT/NARRATIVE: Kemi is an 84 year old female who presents from [facility] with increasing shortness of breath and hypoxia. Staff has noted increased concerns with maintaining her oxygen sats above 85% with 4 liters of oxygen. Was given a Xopenex neb this am which did help raise sats from the 50s to the 80s but did not improve above that. Has been afebrile. Blood pressure is stable. Up 15# since 12-16-2019. Patient admits to feeling short of breath and her legs "hurt". Has had incr eased edema in legs. States is still eating and drinking well. Patient was started on Metolazone on the 31st daily, prior to 80 mg of Lasix daily. Staff has not noted any improvement. Onset: Gradual Duration: Week(s): Location: Reports: Chest, Lower Extremity, Left, Lower Extremity, Right Quality: Reports: Ache Associated Symptoms: Reports: Cough, Shortness of Breath, Weakness. 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 - Related Data Allergies Allergy/AdvReac Type Severity Reaction Status Date / Time carisoprodol [From Soma] Allergy Cannot Verified 01/14/20 11:17 Remember cefaclor [From Ceclor] Allergy Cannot Verified 01/14/20 11:17 Remember cefuroxime [From Ceftin] Allergy Cannot Verified 01/14/20 11:17 Remember clarithromycin [From Biaxin] Allergy Cannot Verified 01/14/20 11:17 Remember naproxen [From Naprosyn] Allergy Cannot Verified 01/14/20 11:17 Remember Penicillins Allergy Cannot Verified 01/14/20 11:17 Remember quinidine Allergy Cannot Verified 01/14/20 11:17 [From Quinidex Extentabs] Remember Home Meds: Home Meds Albuterol/Ipratropium [DuoNeb 3.0-0.5 MG/3 ML] 1 ampule INH QID 05/07/19 [History] Budesonide/Formoterol [Symbicort 160-4.5 MCG] 2 puff INH BID 05/07/19 [History] Furosemide 80 mg PO BID 05/07/19 [History] Insulin Detemir [Levemir Flextouch] 28 unit SQ BID 05/07/19 [History] Spironolactone [Aldactone] 12.5 mg PO DAILY 05/07/19 [History] Warfarin [Coumadin] 2.5 mg PO DAILY 05/07/19 [History] dilTIAZem HCL [Cardizem] 30 mg PO BID 05/07/19 [History] Acetaminophen/HYDROcodone [[place] 325-5 MG] 1 tab PO Q4H PRN #30 tablet 05/10/19 [Rx] Insulin Aspart [NovoLOG] See Protocol SUBCUT WITHMEALSANDBED 05/21/19 [History] Potassium Chloride 10 meq PO BID 05/21/19 [History] Past Medical History HEENT History: Reports: Hard of Hearing, Impaired Vision Cardiovascular History: Reports: Afib, Heart Failure, PVD Respiratory History: Reports: Asthma Genitourinary History: Reports: Urinary Incontinence Endocrine/Metabolic History: Reports: Diabetes, Type II Social & Family History - Family History Family Medical History: Noncontributory - Tobacco Use Tobacco Use Status *Q: Never Tobacco User Second Hand Smoke Exposure: No - Caffeine Use Caffeine Use: Reports: None - Recreational Drug Use Recreational Drug Use: No ED ROS GENERAL - Review of Systems Review Of Systems: See Below Constitutional: Reports: Malaise, Weakness, Fatigue. Denies: Fever, Chills HEENT: Denies: Ear Pain, Rhinitis, Throat Pain Respiratory: Reports: Shortness of Breath, Cough. Denies: Sputum Cardiovascular: Reports: Edema. Denies: Chest Pain, Lightheadedness Endocrine: Reports: Fatigue GI/Abdominal: Denies: Abdominal Pain, Nausea, Vomiting : Reports: Incontinence Neurological: Reports: Weakness ED EXAM, GENERAL - Physical Exam Exam: See Below Exam Limited By: No Limitations General Appearance: Alert, WD/WN, Mild Distress Ears: Normal External Exam, Normal TMs Nose: Normal Inspection, Normal Mucosa, No Blood Throat/Mouth: Normal Inspection, Normal Oropharynx Head: Normocephalic Neck: Normal Inspection, Supple, Non-Tender Respiratory/Chest: Respiratory Distress, Crackles Cardiovascular: Irregularly Irregular GI/Abdominal: Normal Bowel Sounds, Soft, Non-Tender Extremities: Pedal Edema (4+) Neurological: Alert, Oriented Skin Exam: Warm, Dry, Other (venous stasis noted to lower extremities) Course - Vital Signs Last Recorded V/S: Last Vital Signs Temp 98.2 F 01/14/20 10:28 Pulse 89 01/14/20 10:28 Resp 32 H 01/14/20 10:28 BP 145/84 H 01/14/20 10:28 Pulse Ox 86 L 01/14/20 10:28 - Orders/Labs/Meds Orders: Active Orders 24 hr Category Date Time Status Chest 1V Frontal [CR] Stat Exams 01/14/20 10:12 Taken Furosemide [Lasix] Med 01/14/20 12:00 Active 40 mg IVPUSH BID Nitroglycerin [Nitro-Bid 2%] Med 01/14/20 12:00 Active 1 gm TOP Q8H Medication Orders Furosemide (Lasix) 40 mg IVPUSH BID [facility] Last Admin: 01/14/20 12:06 Dose: 40 mg Documented by: IMTIAZ Nitroglycerin (Nitro-Bid 2%) 1 gm TOP Q8H KULDEEP Last Admin: 01/14/20 12:06 Dose: 1 gm Documented by: IMTIAZ Labs: Laboratory Tests 01/14/20 01/14/20 01/14/20 Range/Units 10:35 10:45 10:45 WBC 9.2 (5.0-10.0) 10^3/uL RBC 3.79 L (4.00-5.50) 10^6/uL Hgb 11.0 L (12.0-16.0) g/dL Hct 35.0 L (37.0-47.0) % MCV 92.3 (82.0-94.0) fL MCH 29.0 (27.0-32.0) pg MCHC 31.4 L (33.0-38.0) g/dL RDW Coeff of Fady 15.3 H (11.0-15.0) % Plt Count 409 H (150-400) 10^3/uL Neut % (Auto) 83.5 (35-85) % Lymph % (Auto) 5.4 L (10-55) % Monona % (Auto) 8.3 (0-16) % Eos % (Auto) 2.4 (0-5) % Baso % (Auto) 0.4 (0-3) % Neut # (Auto) 7.69 H (1.80-7.00) 10^3/uL Lymph # (Auto) 0.50 L (1.00-4.80) 10^3/uL Monona # (Auto) 0.76 (0.00-0.80) 10^3/uL Eos # (Auto) 0.22 (0.00-0.45) 10^3/uL Baso # (Auto) 0.04 10^3/uL D-Dimer, Quantitative 0.43 (0.00-0.50) Sodium (136-145) mEq/L Potassium (3.5-5.0) mEq/L Chloride (98-106) mEq/L Carbon Dioxide (21-32) mmol/L BUN (7-18) mg/dL Creatinine (0.6-1.0) mg/dL Est Cr Clr Drug Dosing mL/min Estimated GFR (MDRD) (>=60) mL/min Glucose (75-99) mg/dL Calcium (8.4-10.1) mg/dL Magnesium (1.8-2.4) mg/dL Total Bilirubin (0.0-1.0) mg/dL AST (15-37) U/L ALT (12-78) U/L Alkaline Phosphatase (46-116) U/L Troponin I (0.00-0.06) ng/mL NT-Pro-B Natriuret Pep (0-1000) pg/mL Total Protein (6.4-8.2) g/dL Albumin (3.4-5.0) g/dL SARS CoV-2 RNA Rapid ASH Negative (NEGATIVE) 01/14/20 Range/Units 10:45 WBC (5.0-10.0) 10^3/uL RBC (4.00-5.50) 10^6/uL Hgb (12.0-16.0) g/dL Hct (37.0-47.0) % MCV (82.0-94.0) fL MCH (27.0-32.0) pg MCHC (33.0-38.0) g/dL RDW Coeff of Fady (11.0-15.0) % Plt Count (150-400) 10^3/uL Neut % (Auto) (35-85) % Lymph % (Auto) (10-55) % Monona % (Auto) (0-16) % Eos % (Auto) (0-5) % Baso % (Auto) (0-3) % Neut # (Auto) (1.80-7.00) 10^3/uL Lymph # (Auto) (1.00-4.80) 10^3/uL Monona # (Auto) (0.00-0.80) 10^3/uL Eos # (Auto) (0.00-0.45) 10^3/uL Baso # (Auto) 10^3/uL D-Dimer, Quantitative (0.00-0.50) Sodium 138 (136-145) mEq/L Potassium 4.0 (3.5-5.0) mEq/L Chloride 95 L (98-106) mEq/L Carbon Dioxide 40 H (21-32) mmol/L BUN 75 H* (7-18) mg/dL Creatinine 2.4 H (0.6-1.0) mg/dL Est Cr Clr Drug Dosing 14.53 mL/min Estimated GFR (MDRD) 19 L (>=60) mL/min Glucose 219 H D (75-99) mg/dL Calcium 9.2 (8.4-10.1) mg/dL Magnesium 3.1 H (1.8-2.4) mg/dL Total Bilirubin 0.7 (0.0-1.0) mg/dL AST 20 (15-37) U/L ALT 25 (12-78) U/L Alkaline Phosphatase 127 H (46-116) U/L Troponin I < 0.017 (0.00-0.06) ng/mL NT-Pro-B Natriuret Pep 14046 H (0-1000) pg/mL Total Protein 8.0 (6.4-8.2) g/dL Albumin 3.5 (3.4-5.0) g/dL SARS CoV-2 RNA Rapid ASH (NEGATIVE) Meds: Medications Generic Name Dose Route Start Last Admin Trade Name Freq PRN Reason Stop Dose Admin Furosemide 40 mg 01/14/20 12:00 01/14/20 12:06 Lasix IVPUSH 40 mg BID KULDEEP Administration Nitroglycerin 1 gm 01/14/20 12:00 01/14/20 12:06 Nitro-Bid 2% TOP 1 gm Q8H KULDEEP Administration - Re-Assessments/Exams Free Text/Narrative Re-Assessment/Exam: 01/14/20 1140. Labs reviewed. Discussed with Dr. Tsai. Med changes made. Advised family of patient status. Contacted SANDRA nurse and informed of changes. Departure - Departure Time of Disposition: 11:52 Disposition: Home, Self-Care 01 Condition: Fair Clinical Impression: CHF, Congestive heart failure - Discharge Information *PRESCRIPTION DRUG MONITORING PROGRAM REVIEWED*: No *COPY OF PRESCRIPTION DRUG MONITORING REPORT IN PATIENT MADINA: No Referrals: Ted Tsai MD [Primary Care Provider] - Forms: ED Department Discharge Additional Instructions: 1. Oxygen as needed to keep sat greater than 90% 2. lasix 40 mg BID IV 3. Hold Metolazone 4. Nitropaste 1/2 inch every 8 hours 5. Repeat ProBNP and BMP on Thursday 6. Call Dr. Tsai with concerns Sepsis Event Note (ED) - Evaluation Sepsis Screening Result: No Definite Risk - Focused Exam Vital Signs: Vital Signs Temp Pulse Resp BP Pulse Ox 01/14/20 10:28 98.2 F 89 32 H 145/84 H 86 L - My Orders Last 24 Hours: My Active Orders 01/14/20 10:12 Chest 1V Frontal [CR] Stat 01/14/20 12:00 Furosemide [Lasix] 40 mg IVPUSH BID Nitroglycerin [Nitro-Bid 2%] 1 gm TOP Q8H - Assessment/Plan Last 24 Hours: My Active Orders 01/14/20 10:12 Chest 1V Frontal [CR] Stat 01/14/20 12:00 Furosemide [Lasix] 40 mg IVPUSH BID Nitroglycerin [Nitro-Bid 2%] 1 gm TOP Q8H
[2020-01-14] MEDS ORDERED: Furosemide 40 MG/4 ML VIAL IVPUSH SCH (12:00)
[2020-01-14] MEDS ORDERED: Nitroglycerin 2% Oint 1 GM UD Packet TOP SCH (12:00)
== END 2020-01-14 12:40 | disposition home or self-care (01) ==
LOC: CC.ED 10:06
DX: I50.9 Heart failure, unspecified (principal); I48.91 Unspecified atrial fibrillation; J45.909 Unspecified asthma, uncomplicated; E11.9 Type 2 diabetes mellitus without complications; Z88.0 Allergy status to penicillin; Z88.8 Allergy status to other drugs, medicaments and biological substances; Z79.4 Long term (current) use of insulin; Z79.899 Other long term (current) drug therapy; Z20.828 Contact with and (suspected) exposure to other viral communicable diseases
CPT/HCPCS: 36415; 71045; 80053; 83735; 83880; 84484; 85025; 85379; 93005; 93010; 96374; 99284; 99285-25; A9270-GY; J1940; U0002